=== PATIENT | female | born 2000 | race African-American/Black ===

== ENCOUNTER 2024-03-16 12:30 | Emergency (ER) | payer SELFPAY ==
[2024-03-16 12:32] VITALS: BP 119/85; PULSE 72; RESP 15; TEMP 36.4; O2SAT 98; BMI 35.9
--- NOTE | 2024-03-16 13:37 | US_ITS ---
STUDY: FIRST TRIMESTER OBSTETRICAL ULTRASOUND REASON FOR EXAM: Female, 23 years old -- NO FHR SEEN AT [facility] LMP: October 17, 2024. TECHNIQUE: Transvaginal TECHNICAL QUALITY: Adequate. PRIOR ULTRASOUND: None. FINDINGS: There is visualization of a single gestational sac in a normal intrauterine position. The mean sac diameter (MSD) measures 4.5 cm, indicating an estimated gestational age (EGA) of 10 weeks, 0 days. The gestational sac shape is within normal limits. There is a visualized yolk sac. The yolk sac measures 3.3 mm. The placenta is non-visualized. There is visualization of an embryo with no cardiac activity, consistent with intrauterine demise. The crown-rump length (CRL) measures 1.84 cm, indicating an estimated gestational age (EGA) of 9 weeks, 2 days. The estimated gestation age (EGA) by LMP is 9 weeks, 2 days. The estimated date of delivery (FARZAD) by LMP is October 17, 2023. The estimated gestation age (EGA) by US is 9 weeks, 1 days. The estimated date of delivery (FARZAD) by US is October 18, 2023. The uterus measures 10.5 cm x 7.4 cm x 4.9 cm. There is no demonstrated uterine fibroid. The cervix is closed. There is evidence of a 1.5 cm x 1.4 cm x 0.8 cm subchorionic hematoma. The right ovary measures 3.1 cm x 2.4 cm x 2.2 cm. There is a 1.6 cm x 1.1 cm x 1 cm follicular cyst. There is no visualized right adnexal mass or complex lesion. The left ovary measures 2.7 cm x 3 cm x 1.2 cm. There is no left ovarian cyst. There is no visualized left adnexal mass or complex lesion. There is no fluid in the cul de sac. US/Transvaginal w/Preg US IMPRESSION: Intrauterine gestation with a mean gestational age of 9 weeks and 1 day. No cardiac activity is noted at this time. Right follicular cyst. Subchorionic hematoma. Electronically Signed: Jona Ward MD at 14:36 EDT ,
--- NOTE | 2024-03-16 13:40 | ED.VIS.FEGU ---
HPI HPI - Female History of Present Illness Chief Complaint: Narrative Narrative: 23-year-old female at approximately 8 weeks gestation presents from the care center with concern for intrauterine demise/incomplete miscarriage. She relates history that she used to live in [place], and her last menstrual period was January 10, approximately 2 months ago. She did not do a home test, but had gone to the ER and was diagnosed with . On Saturday, 4 days ago, she was seen in an emergency department in [place] because of nausea and vomiting with , and she states that she had an ultrasound performed which showed that she had a intrauterine with heartbeat and a subchorionic hemorrhage/hematoma but had no evidence of vaginal bleeding at that time. They were on the road the following day, and she followed up with the care center here in [place] today, and was told that the subchorionic hematoma had dissolved, but they did not see the baby's heartbeat. She states that she may have occasional vaginal cramping, but no evidence of vaginal bleeding. She was sent to the emergency department for further evaluation. PFSH PFSH Medical History no medical history Allergy/AdvReac Type Severity Reaction Status Date / Time No Known Allergies Allergy Verified 03/16/24 12:34 Family History no significant family his Surgical History no surgical history Social History household members: family and children housing: house current occupational status: unemployed Smoking Status: Never smoker ROS ROS ED ROS Narrative Constitutional: No fever, no chills. HEENT: No sore throat. No neck pain. No loss of vision. No rhinorrhea. Cardiovascular: No chest pain. No palpitations. No pedal edema. Respiratory: No cough, no shortness of breath. Abdominal: No abdominal pain. No nausea. No vomiting. Genitourinary: No dysuria. No hematuria. Occasional vaginal/pelvic cramping. No vaginal bleeding. Musculoskeletal: No myalgias. No arthralgias. Neurologic: No headaches. No dizziness. No lightheadedness. Skin: No rash. No change in color. Psychiatric: No depression. No anxiety. EXAM Physical Exam Narrative Exam Narrative: Afebrile. Vital signs noted. HEENT: Normocephalic. Atraumatic. PERRL, EOMI. Neck soft and supple. No point tenderness or step off. Cardiovascular: Regular rate and rhythm. No murmurs, rubs, or gallops appreciated. Respiratory: No tachypnea. Lungs clear to auscultation bilaterally. Gastrointestinal: Abdomen soft, nontender, with normoactive bowel sounds. No rebound or guarding. Neurological: Awake. Alert. Nonfocal, nonlateralizing. Skin: No rash. Normal color. No pallor. Musculoskeletal: No pedal edema. Full range of motion extremities. Const Vital Signs: 03/16/24 12:32 03/16/24 14:31 Temperature 97.6 F L Temperature Source Temporal Pulse Rate 72 78 Respiratory Rate 15 17 Blood Pressure 119/85 H 112/56 L Blood Pressure Mean 96 74 Pulse Ox 98 99 Oxygen Delivery Method Room Air Room Air MDM MDM MDM Narrative Medical decision making narrative: In the differential diagnosis is intrauterine demise versus missed miscarriage. I reviewed her laboratory work and she has normal white count of 6.7 with hemoglobin 11.1, hematocrit 33.7, sodium slightly low at 134 with potassium 3.4, BUN 5 with creatinine 0.67. Glucose appropriately elevated at 82, AST low at 11, normal ALT of 15. hCG quantitative is elevated at 42,037 with serum initially obtained so ultrasound could be obtained which is positive. I reviewed the radiology report which shows an embryo without any cardiac activity consistent with intrauterine demise. There is an intrauterine gestation with gestational age approximated at 9 weeks and 1 day. There is a subchorionic hematoma. Additionally, cervix is closed. At this point in time, as she had not established any AMUSEMENT OR RECREATION CARD CHECKER care, patient was discussed with Dr. White with OBGYN who is reportedly on for no doc. In discussion with Dr. White, the patient was presented with 2 options, 1 being with a prescription for Cytotec and discharged with follow-up within the next few days for repeat ultrasound versus being contacted for D&C in the office as an outpatient. Patient has elected not to take Cytotec and will follow-up with the AMUSEMENT OR RECREATION CARD CHECKER in the office. Return instructions to the emergency department were reviewed. Disposition is discharged home in stable condition. History & Record Review Discussion w/independent historian: Patient Lab Data Attestation: I reviewed the patient's lab results. Labs: Laboratory Results - last 24 hr 03/16/24 13:20 WBC 6.7 RBC 3.79 L Hgb 11.1 L Hct 33.7 L MCV 88.9 MCH 29.3 MCHC 32.9 RDW Std Deviation 43.1 RDW Coeff of Newton 13.2 Plt Count TNP MPV 11.3 Immature Gran % (Auto) 0.300 Neut % (Auto) 57.6 Lymph % (Auto) 33.8 [place] % (Auto) 6.4 Eos % (Auto) 1.5 Baso % (Auto) 0.4 Absolute Neuts (auto) 3.8 Absolute Lymphs (auto) 2.26 Nucleated RBC % 0 Platelet Estimate ADEQUATE Sodium 134 L Potassium 3.4 L Chloride 106 Carbon Dioxide 23.0 Anion Gap 5 BUN 5 L Creatinine 0.67 Estim Creat Clear Calc 132.42 Est GFR (MDRD) Af Amer 142 Est GFR (MDRD) Non-Af 118 BUN/Creatinine Ratio 7.5 L Glucose 82 Calcium 8.9 Total Bilirubin 0.20 AST 11 L ALT 15 Alkaline Phosphatase 56 Total Protein 7.6 Albumin 3.6 Globulin 4.0 Albumin/Globulin Ratio 0.9 HCG, Quant 17993 H Serum , Qual POSITIVE H Blood Type O POSITIVE Radiography Diagnostic Testing: Clinical Impression(s) from Imaging Studies Obstetrics Ultrasound 03/16/24 13:37 IMPRESSION: Intrauterine gestation with a mean gestational age of 9 weeks and 1 day. No cardiac activity is noted at this time. Right follicular cyst. Subchorionic hematoma. Electronically Signed: Jona Ward MD at 14:36 EDT , Discharge Plan Triage Chief Complaint: ED Provider: Jose Worthy Dx/Rx/DC Orders Clinical Impression: Intrauterine , Missed with demise before 20 completed weeks of gestation Instructions: ED MISCARRIAGE Incomplete, ED DEMISE Primary Care Provider: Care Physician,No Primary Referrals: Heavenly White DO [Med Staff - Active Staff] - 3-5 Days Care Physician,No Primary [Primary Care Provider] - Activity Restrictions/Additional Instructions: The AMUSEMENT OR RECREATION CARD CHECKER's office will be in touch with you over the next 1 to 2 days for an appointment to be seen later this week. You can also call the office for an appointment. Return to the emergency department with increased bleeding, pain, new or worsening symptoms. It is important for you to follow-up with the AMUSEMENT OR RECREATION CARD CHECKER within the next few days/week. Print Language: Icelandic Disposition Disposition: Home, Self Care
[2024-03-16 13:56] LABS: Absolute Lymphocyte Count 2.26 X10^3/uL (0.83-4.51); Absolute Neutrophil Count 3.8 X10^3/uL (2.0-7.7); Basophil# 0.03 X10^3/uL; Basophil% 0.4 % (0-1); Eosinophils% 1.5 % (0-5); Hematocrit 33.7 % (37-47); Hemoglobin 11.1 g/dL (12.0-15.0); Internal QC Validated? YES +Cl - CLEAR BKGD; Lymphocyte # 2.26 X10^3/ul (0.83-4.51); Lymphocyte % 33.8 % (19-41); Mean Corp Hgb Conc 32.9 g/dL (32-36); Mean Corpuscular Hgb 29.3 pg (27.0-32.0); Mean Corpuscular Volume 88.9 fL (81-99); Mean Platelet Vol. 11.3 fl (6.2-12.0); Monocyte# 0.43 X10^3/uL; Monocyte% 6.4 % (0-10); NRBC Flagged by Analyzer 0 % (0-5); Neutrophil # 3.84 X10^3/uL (2.7-7.7); Neutrophil % 57.6 % (47-70); POSITIVE COUNT YES; RBC Distribution Width CV 13.2 % (11.6-14.6); RBC Distribution Width SD 43.1 fl (35.1-43.9); Red Blood Count 3.79 M/mm3 (4.2-5.4); White Blood Count 6.7 K/mm3 (4.4-11.0)
[2024-03-16 14:05] LABS: ALB/GLOB Ratio 0.9 RATIO (0.9-2.4); AST(SGOT) 11 U/L (15-37); Alanine Aminotransfer ALT/SGPT 15 U/L (13-56); Albumin, Serum 3.6 g/dL (3.2-5.0); Alkaline Phosphatase 56 U/L (45-117); Anion Gap 5 (5-15); BUN 5 mg/dL (7-18); BUN/Creat Ratio 7.5 RATIO (10-20); Calcium,Total 8.9 mg/dL (8.5-10.1); Chloride 106 mmol/L (98-107); Creatinine, Serum 0.67 mg/dL (0.55-1.02); EST Glomerular Filtration Rate 118 mL/min (>60); Est Glom Filt Rate - Afr Amer 142 mL/min (>60); Estimated Creatinine Clearance 132.42 ml/min; Glucose 82 mg/dL (74-106); Potassium 3.4 mmol/L (3.5-5.1); Protein, Total 7.6 g/dL (6.4-8.2); Sodium Level 134 mmol/L (136-145)
[2024-03-16 14:19] LABS: Differential Indicated SCAN CRITERIA MET
[2024-03-16 14:20] LABS: Platelet Estimate ADEQUATE (ADEQ)
[2024-03-16 14:24] LABS: Pregnancy, Serum, hCG Quali. POSITIVE Negative (0-9 Nonpreg); hCG Titer Quant., Serum 42037 mIU/mL (1-3)
[2024-03-16 14:31] VITALS: BP 112/56; PULSE 78; RESP 17; O2SAT 99
[2024-03-16 15:55] VITALS: BP 126/72; PULSE 89; RESP 16; TEMP 36.6; O2SAT 99
== END 2024-03-16 15:55 | disposition home or self-care (01) ==
PROVIDERS: Emergency Provider Emergency Medicine; Visit Provider Emergency Medicine
DX: O02.1 Missed abortion (principal)
CPT/HCPCS: 76817; 80053; 84702; 84703; 85025; 86900; 86901; 99282; A4216

== ENCOUNTER 2024-03-26 12:08 | Day surgery (SDC) | payer SELFPAY ==
[2024-03-26] VITALS (8 sets, daily range): BP systolic 104–119; BP diastolic 61–72; PULSE 82–94; RESP 16; TEMP 36.1–36.6; O2SAT 98–100; BMI 38.1
--- NOTE | 2024-03-26 | POC_PTH ---
PATIENT: JERARDO BENITEZ [place] [facility] [id number] AGE/SX: 23/ ROOM: RE03/26/[address]: Dr. Heavenly White DO : 2000 BED: DIS: 03/26/2024 SPEC #: [id number] RECD: 03/26/24 15:07 STATUS: LIDIA REFaustino #: [id number] FLORIN: 03/26/24 00:[address]: Heavenly White DEPT: SURGICAL PATHOLOGY RECD BY: Victor M Molina ENTERED: 03/27/24 10:35 SP TYPE: PROD CONC OTHR DR: No Primary Care Phys Tissues: Product of conception, NOS Procedures: Surgery Specimen Level IV HEADER OPERATION: D&C, suction PRE-OP DIAGNOSIS: Missed TISSUE SUBMITTED: Products of conception MICROSCOPIC DIAGNOSIS Endometrium, curettage: Chorionic villi, decidualized stroma and trophoblastic cells (products of conception). AM: 03/30/2024 MICROSCOPIC DESCRIPTION Slides are reviewed. GROSS DESCRIPTION Received in fixative is one container labeled with the patient's name and designated Products of conception. The specimen consists of multipe fragments of pink hemorrhagic soft tissue measuring in aggregate 8.0 x 8.0 x 2.0cm. tissue is not identified. Small Package And Bundle Sorter Clerk tissue are submitted in three cassettes. SOO/ 03/27/2024 TC:5 CPT:23240
--- NOTE | 2024-03-26 12:14 | PCM.PRE.AN2 ---
ASA Classification* ASA Classification ASA Classification: 2 Assessment & Plan Anesthesia* Anesthesia Assessment Anesthesia Assessment: Discussed sedation and/or anesthesia options, risks, benefits, and alternatives with patient/parents/legal guardian/POA. Questions invited. The patient/parents/legal guardian/POA seems to understand and agrees to proceed with anesthesia plan. Reviewed the physical assessment, medical history, allergy history and patient home medications list prior to surgery/procedure/anesthetic and documented any changes. Performed airway and anesthesia risk assessments. Anesthesia Type Anesthesia Type: MAC Anesthesia Focused Assessment* Airway Assessment Mouth opens: >3 cm Mallampati Score: III Focused Labs Anesthesia Preop lab: CBC WBC 6.7 K/mm3 (4.4-11.0) 03/16/24 13:20 RBC 3.79 M/mm3 (4.2-5.4) L 03/16/24 13:20 Hgb 11.1 g/dL (12.0-15.0) L 03/16/24 13:20 Hct 33.7 % (37-47) L 03/16/24 13:20 Plt Count TNP 03/16/24 13:20 CHEMISTRY Potassium 3.4 mmol/L (3.5-5.1) L 03/16/24 13:20 Sodium 134 mmol/L (136-145) L 03/16/24 13:20 BUN 5 mg/dL (7-18) L 03/16/24 13:20 Creatinine 0.67 mg/dL (0.55-1.02) 03/16/24 13:20 Glucose 82 mg/dL (74-106) 03/16/24 13:20 COAG HCG, Quant 52985 mIU/mL (1-3) H 03/16/24 13:20 Pre-Assessment Diagnosis/Proposed Procedure Planned Operative Procedure(s): SUCTION D&C Anesthesia History Anesthesia History - merchandise coordinator: Anesthesia History - merchandise coordinator Hx Hospitalization No 03/23/24 12:22 Any Problems With Anesthesia Yes: N,V 03/23/24 12:22 Cholinesterase deficiency No 03/23/24 12:22 You/Your Family Experience No 03/23/24 12:22 fever (hyperthermia) with Relationship Recent Exposure to Contagious Disease Does patient have nerve No 03/23/24 12:22 stimulator Patient instructed to have device shut off --Does patient have Pacemaker or ICD? When Was Last Pacemaker Check QUESTION #4 FULL TEXT: You/Your Family Experience fever (hyperthermia) with Anesthesia Last Oral Intake Last Oral intake: Last Oral Intake NPO since Meds taken in AM with sips of water? Meds patient instructed to take am of surgery PONV PONV - merchandise coordinator: PONV - merchandise coordinator Female Yes 03/23/24 12:22 HX of Motion Sickness No 03/23/24 12:22 HX of N/V After Surgery Yes 03/23/24 12:22 Non-Smoker Yes 03/23/24 12:22 Duration of Surgery greater No 03/23/24 12:22 than 60 minutes Number of Risk Factors 3 03/23/24 12:22 PONV Score Moderate Risk 03/23/24 12:22 Height & Weight Height & Weight: Anesthesia: Height & Weight Height 5 ft 1 in 03/16/24 12:32 Respiratory Assessment Respiratory Assessment - merchandise coordinator: Respiratory Tract Infection Hx - merchandise coordinator Hx Respiratory Tract Infection No 03/23/24 12:22 STOP Sleep Apnea STOP Sleep Apnea - merchandise coordinator: STOP Sleep Apnea - merchandise coordinator Hx Hypertension No 03/23/24 12:22 Hx Sleep Apnea No 03/23/24 12:22 CPAP BIPAP Do you snore loudly (louder No 03/23/24 12:22 than talking or can be heard Do you often feel tired/ Yes 03/23/24 12:22 fatigued/ sleepy during daytime? Has anyone observed you stop No 03/23/24 12:22 breathing during sleep? STOP Results Negative 03/23/24 12:22 QUESTION #5 FULL TEXT : Do you snore loudly (louder than talking or can be heard through closed doors)? Tobacco Use History Tobacco Use History - merchandise coordinator: Tobacco Use History - merchandise coordinator Tobacco Use Smoking Status Former smoker 03/23/24 12:22 Hx Tobacco Use Yes 03/23/24 12:22 Years Smoking Packs Smoked per Day Smoking Cessation Date was Yes - quit smoking within 15 03/23/24 12:22 within the last 15 years years Hx Smoking Cessation Date Hx Smoking Cessation No 03/23/24 12:22 Counseling Hematologic Medial History Hematologic Hx - merchandise coordinator: Hematologic Medical Hx - craft coordinator Hx of Blood Transfusion No 03/23/24 12:22 Hx of Transfusion in last 3 No 03/23/24 12:22 Months Date of Last Transfusion (if within last 3 months) Ever experience any problems No 03/23/24 12:22 with transfusion(s)? Specify any problems Hx of Preganancy in last 3 Yes 03/23/24 12:22 Months Nurse Filling Out Transfusion DSCHRIBER 03/23/24 12:22 & Questions: Date: 03/23/24 03/23/24 12:22 Time: 12:23 03/23/24 12:22 Patient unable to answer at this time (ie. confused, unrespo /Reproduction History /Reproductive History - merchandise coordinator: /Reproductive Hx- merchandise coordinator Hx Now Yes 03/23/24 12:22 Gestational Age (in weeks): EDC: Hx Hx Para Hx Section SAB No 03/23/24 12:22 Active Medications Active Medications: Current Medications Generic Name Dose Route Start Last Admin Trade Name Freq PRN Reason Stop Dose Admin Doxycycline Monohydrate 200 mg 03/26/24 13:30 Doxycycline 100 Mg Capsule PO 03/26/24 13:31 PREOP ONE Lactated Ringer's 1,000 mls @ 15 mls/hr 03/26/24 12:15 IV .Q48H JOSE ELIAS PFSH Medical History Migraine headache Heartburn Former smoker Home Medications ?Medication ?Instructions ?Recorded ?Last Taken ?Type NK 03/19/24 Unknown History Allergy/AdvReac Type Severity Reaction Status Date / Time No Known Allergies Allergy Verified 03/19/24 08:15 Surgical History Hx of dilation and curettage Social History household members: family and children housing: house current occupational status: unemployed Smoking Status: Former smoker Review of Systems (Anesthesia) ROS Narrative System reviewed and no additional complaints, except as documented.
[2024-03-26] MEDS: Lactated Ringers 1,000 ML 15 ML IV (12:41)
[2024-03-26] MEDS: Doxycycline 100 MG CAPSULE 200 MG PO (12:41)
--- NOTE | 2024-03-26 13:47 | HP.PCM.OB_ITS ---
History and Physical Date of Admission: 03/26/24 HPI: Patient presents with miscarriage. She reports 2 ED visits in the past week. One in [place] and the other here in [place] where she learned of the loss. She denies vaginal bleeding or pain. OB History No obstetric history on file. Heel Trimmer History LMP: Age at Menarche: Age at First : Age at Menopause: Heel Trimmer History Comments: Sexual Activity: No sexual activity data on record; No partner data on record Contraception: No contraception data on record ? PAST MEDICAL HISTORY History reviewed. No pertinent past medical history. PAST SURGICAL HISTORY PAST SURGICAL HISTORY Procedure Laterality Date ? D&C, DIAG AND/OR THERAPEUTIC 06/2022 FAMILY HISTORY No family history on file. SOCIAL HISTORY CURRENT MEDICATIONSExpand by Default No current outpatient medications on file. No current facility-administered medications for this visit. Allergies As of Date: 03/20/2024 (Not on File) Fully Assessed 03/20/2024 Allergies and current medication updated:Yes EXAM: BP 122/58 Wt 203 lb (92.1kg) GENERAL: pleasant, female in no apparent distress ASSESSMENT AND PLAN: 23yo female with missed ED records from [place] reviewed. Bedside TVUS today shows IUP measuring 8&3 with no FCA. Discussed R/B/A of treatment options and patient wishes to proceed with suction D&C at [facility]. Informed consent signed and all questions answered. Assessment & Plan Assessment/Plan (1) Missed :
[2024-03-26] MEDS: Lidocaine 1% /Epi 1:100 (20ml) 20 ML Vial (13:56)
--- NOTE | 2024-03-26 14:17 | PCM.OPRPT ---
Problems Associated Problem List Diagnoses (1) Missed : Report of Operation Date of Procedure: 03/26/24 Pre-Operative Diagnosis: MAB at 8 week Post-Operative Diagnosis: As above Surgery/Procedure Performed:: Suction D&C under ultrasound guidance Description of Surgical Findings:: Enlarged 8-9 week sized uterus Surgeon: Heavenly White white metal corrosion proofer: None Type of Anesthesia: MAC Special Medications: None Specimen's removed: Products of conception Drains: None Estimated Blood Loss (mL): 20 Fluids Replaced: See anesthesia record Description of Procedure: Patient was taken to the operating room where MAC anesthesia was induced and found to be adequate. She was prepped and draped in the dorsal lithotomy position using yellowfin stirrups. A weighted speculum was placed in the vagina to expose the cervix. A single-tooth tenaculum was placed on the anterior lip of the cervix. Local was infiltrated circumferentially within the cervix. The cervix was serially dilated to accommodate a size 9 suction curettage. The suction curettage was performed to remove the products of conception under ultrasound guidance. A sharp curettage was performed along all 4 uterine huizar with a good uterine cry. An ultrasound was performed at the end of the procedure confirming no obvious retained products of conception, however the ultrasound was limited given body habitus. Bleeding was hemostatic. All instruments were removed from the vagina and a vaginal sweep was performed. Sponge counts were correct. The patient was taken to the recovery in stable condition. Grafts/Implants Used: None Procedure Start Time: 13:54 Procedure Stop Time: 14:16 Complications None Admit VTE Documentation VTE Present on Admission: No VTE Mechan Device Prophylaxis: SCD's
--- NOTE | 2024-03-26 14:26 | PCM.DC ---
Discharge Instructions Diet Discharge Diet: No restrictions Activity Discharge Activity: May Drive (once you are more than 24 hours out from surgery) and May Shower (once you are more than 24 hours out from surgery) May resume sexual activity in: 2 weeks (nothing in the vagina and no soaking in water while having vaginal bleeding and for at least 2 weeks) Ice area for (Minutes): 15 Weight Bearing Status: Weight bearing as tolerated Lifting Restrictions: none Dressing / Incision Call your doctor if you observe: Fever of 101 or Higher, Coldness, Increased Pain, Numbness or Tingling, Change in Color, Inability to urinate, Inability to have a bowel movement, Using more than 1 pad per hour, Shortness of breath, Dizziness, Fainting spells, Swelling in the ankles, Chest pain, Prolonged hiccupping, Increased palpitations (irregular heartbeat), Calf discomfort and Uncontrolled pain Cleanse incision/area with: Soap & Water Follow Up Care Please Follow Up With: Heavenly White DO When: 1-2 weeks Test Results: Test results from this visit will be discussed in further detail at your follow-up appointment, if applicable. Discharge Plan Admission Primary Reason for Your Visit: surgery Attending Provider: Heavenly White Primary Care Provider: Care Physician,[place] Primary Instructions Print Language: French Discharge Orders/Prescriptions Prescriptions: No Action NK Other Ambulatory Orders: Type & Screen - PAT ONLY (Routine) Timeframe: [id number] Facility: [facility] - Location: Laboratory Ordered By: Dr. Heavenly White Referrals / Follow Up: Care Physician,No Primary [Primary Care Provider] - Disposition Disposition (needs filled in before D/C Order can be placed): Home, Self Care
--- NOTE | 2024-03-26 14:27 | PCM.POST.ANE ---
Anesthesia: Postop Eval I Current Vital Signs Temperature: 97.2 F Pulse Rate: 92 Blood Pressure: 111/66 Respiratory Rate: 16 Pulse Ox: 100 Oxygen Delivery Method: Room Air Assessment Airway patent: Yes Spontaneous unlabored respirations: Yes Mental status: Awake and Calm nausea: No Vomiting: No Anesthesia Complication: No Fluid Hydration Crystalloid volume administer (ml): 600 Total IV fluid infused: 600 Progress Note Anesthesia document: Postop Eval 1 completed: Yes
--- NOTE | 2024-03-27 11:15 | POSTOPAN2_ITS ---
Anesthesia Postop Eval I Sum Postop Eval Completion status Anesthesia document: Postop Eval 1 completed: Yes Anesthesia Postop Eval I Summary Anesthesia Postop Eval I Summary: Anesthesia Postop Eval I: Assessment Summary Airway patent Yes 03/26/24 14:28 BACK PANEL PADDER.[email or web address] Spontaneous unlabored Yes 03/26/24 14:28 BACK PANEL PADDER.OSKAR respirations Mental status Awake,Calm 03/26/24 14:28 BACK PANEL PADDER.TONYOBDora nausea No 03/26/24 14:28 BACK PANEL PADDER.TONYOBDora Vomiting No 03/26/24 14:28 BACK PANEL PADDER.TONYOBDora Anesthesia Postop Eval I: Fluid Summary Crystalloid volume administer 600 03/26/24 14:28 BACK PANEL PADDER.TONYOBY (ml) Colloids volume administered ( ml) Blood Product volume administered (ml) Total IV fluid infused 600 03/26/24 14:28 BACK PANEL PADDER.OSKAR Anesthesia Postop Eval I: Summary Notes Anesthesia Complication No 03/26/24 14:28 BACK PANEL PADDER.OSKAR Anesthesia Complication Comment: Post-operative progress note Anesthesia: Postop Eval II Evaluation Mental status: Awake and Calm Pain Level: 1 nausea: No Vomiting: No Complications Anesthesia Complication: No
--- NOTE | 2024-03-27 11:15 | PCM.POSTANE2 ---
Anesthesia Postop Eval I Sum Postop Eval Completion status Anesthesia document: Postop Eval 1 completed: Yes Anesthesia Postop Eval I Summary Anesthesia Postop Eval I Summary: Anesthesia Postop Eval I: Assessment Summary Airway patent Yes 03/26/24 14:28 CAUSTIC PURIFICATION OPERATOR.[email or web address] Spontaneous unlabored Yes 03/26/24 14:28 CAUSTIC PURIFICATION OPERATOR.OSKAR respirations Mental status Awake,Calm 03/26/24 14:28 CAUSTIC PURIFICATION OPERATOR.TONYOBDora nausea No 03/26/24 14:28 CAUSTIC PURIFICATION OPERATOR.TONYOBDora Vomiting No 03/26/24 14:28 CAUSTIC PURIFICATION OPERATOR.TONYOBDora Anesthesia Postop Eval I: Fluid Summary Crystalloid volume administer 600 03/26/24 14:28 CAUSTIC PURIFICATION OPERATOR.TONYOBY (ml) Colloids volume administered ( ml) Blood Product volume administered (ml) Total IV fluid infused 600 03/26/24 14:28 CAUSTIC PURIFICATION OPERATOR.OSKAR Anesthesia Postop Eval I: Summary Notes Anesthesia Complication No 03/26/24 14:28 CAUSTIC PURIFICATION OPERATOR.OSKAR Anesthesia Complication Comment: Post-operative progress note Anesthesia: Postop Eval II Evaluation Mental status: Awake and Calm Pain Level: 1 nausea: No Vomiting: No Complications Anesthesia Complication: No
== END 2024-03-26 15:21 | disposition home or self-care (01) ==
LOC: SDC 12:10 → AC 12:12
PROVIDERS: Referring Provider Obstetrics & Gynecology; Visit Provider Obstetrics & Gynecology
PROC: (CPT 59820; principal; 2024-03-26 13:15)
DX: O02.1 Missed abortion (principal)
CPT/HCPCS: 59820; 01965; 86850; 86900; 86901; 88305; J7120; J2405

== ENCOUNTER 2025-02-12 12:28 | Emergency (ER) | payer BC, SELFPAY ==
[2025-02-12 12:28] VITALS: BP 154/95; PULSE 96; RESP 14; TEMP 36.1; O2SAT 99; BMI 41.9
--- NOTE | 2025-02-12 12:52 | EX.ED.DYSGE1 ---
HPI <MOE Nowak - Last Filed: 02/12/25 14:55> History of Present Illness Chief Complaint: Abd Pain Narrative Narrative: Patient presenting today after being sent over from urgent care. She went to urgent care due to left-sided throat pain she has had over the past 2 weeks, she had a negative rapid strep test there. She also reported that she is 1 week late on her period, she had a positive test there. 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 Her LMP was at the end of December. She denies abnormal vaginal bleeding. She reports a history of pelvic cramping intermittently since having her miscarriage last March. She is not currently having any pelvic pain. She also reports that over the past 2 weeks she has had epigastric abdominal pain. She reports that at this time her pain is minimal. She denies fevers, chills, nausea, and vomiting. PFSH <MOE Nowak - Last Filed: 02/12/25 14:55> PFS Medical History Migraine headache Heartburn Former smoker Home Medications ?Medication ?Instructions ?Recorded ?Last Taken ?Type NK 03/19/24 Unknown History Allergy/AdvReac Type Severity Reaction Status Date / Time No Known Allergies Allergy Verified 02/12/25 12:28 Family History no significant family his Surgical History Hx of dilation and curettage Social History household members: family and children housing: house current occupational status: unemployed Smoking Status: Never smoker ROS <MOE Nowak - Last Filed: 02/12/25 14:55> ROS ED Constitutional Constitutional ED: Denies chills or fever(s) Cardiovascular Cardiovascular: Denies chest pain Respiratory/Chest Respiratory/Chest: Denies dyspnea Gastrointestinal Gastrointestinal: Reports abdominal pain; Denies constipation, diarrhea, nausea or vomiting Genitourinary Genitourinary ED: Denies dysuria, hematuria or urinary urgency Musculoskeletal Musculoskeletal: Denies arthralgias or myalgias Integumentary Denies rash Neurologic Neurologic: Denies weakness EXAM <MOE Nowak - Last Filed: 02/12/25 14:55> Physical Exam Const Vital Signs: 02/12/25 12:28 02/12/25 14:09 Temperature 97 F L 97 F L Temperature Source Temporal Pulse Rate 96 81 Respiratory Rate 14 14 Blood Pressure 154/95 H 117/77 Blood Pressure Mean 114 90 Pulse Ox 99 99 Oxygen Delivery Method Room Air Positive well nourished, well developed and no apparent distress General Appearance ED: well developed HEENT Reports normocephalic and head/scalp atraumatic HEENT Narrative: Posterior pharynx clear, no tonsillar exudate, uvula midline Mouth ED: Yes moist mucous membranes normal Eyes PERRL and EOMs intact bilaterally Neck full ROM, no lymphadenopathy and supple Chest Wall inspection of chest normal Resp normal respiratory effort and clear to auscultation bilaterally Cardio regular rate and regular rhythm GI soft to palpation, non-distended and no masses GI Narrative: No right upper quadrant tenderness, minimal epigastric tenderness on exam, negative Park sign, no rigidity or guarding Back/Spine normal ROM and normal to inspection Extremity normal to inspection and full ROM Neuro oriented x3, CN's II-XII intact bilaterally, moves all extremities, no focal motor deficits and no sensory deficits noted Sensorium / Orientation: awake and alert Psych mental status grossly normal and thought process normal Skin no rashes or lesions noted and no wounds <Dr. John Kovacs MD - Last Filed: 02/13/25 12:15> Physical Exam Const Vital Signs: 02/12/25 12:28 02/12/25 14:09 Temperature 97 F L 97 F L Temperature Source Temporal Pulse Rate 96 81 Respiratory Rate 14 14 Blood Pressure 154/95 H 117/77 Blood Pressure Mean 114 90 Pulse Ox 99 99 Oxygen Delivery Method Room Air [facility] <MOE Nowak - Last Filed: 02/12/25 14:55> [facility] Narrative Medical decision making narrative: Patient presenting today after being sent over from urgent care. She had right upper quadrant tenderness while at the urgent care, however she denies currently having any right upper quadrant abdominal pain. She has had intermittent upper abdominal pain for the past few weeks. On my exam, she has a negative Park sign, she has minimal tenderness to her epigastric region. She reports that the reason she went to urgent care was for left-sided throat pain. They did a rapid strep which was negative. On exam, she does not have any erythema to the posterior pharynx, her uvula is midline, no sign of peritonsillar abscess. Suspect viral pharyngitis. Labs obtained here, her CBC, LFTs, and lipase are unremarkable. She does not have any urinary symptoms to indicate a UTI. She is not having any pelvic pain or abnormal vaginal bleeding. Given she has not yet had a ultrasound to confirm IUP, I recommended she follow-up closely with OB to have this done as an outpatient. She was given a GI cocktail for her symptoms and on reexamination reported improvement of her epigastric pain. I do not feel that any abdominal imaging is indicated. Return instructions discussed and patient discharged home in stable condition. I have personally performed a face to face assessment of the patient and have reviewed the ANA Note. I performed a substantive portion of the visit including all aspects of the following. My blanco findings include: History is remarkable for right upper quad abdominal pain intermittently for the past 2 weeks, throat pain who reported a late menses. She was seen at urgent care. Rapid strep was negative. test was positive. Patient does endorse intolerance to greasy fried foods. No family history cholelithiasis. She denies history of peptic ulcer disease, hiatal hernia or reflux. She denies black or maroon-colored stool. She denies vomiting. Exam is elevated blood pressure 154/95. BMI is 41.9. HEENT is unremarkable. Lungs are clear auscultation. There is good breath sounds bilateral. Heart is regular. Rate is normal. No murmur, gallop or rub. Abdominal exam is remarkable for epigastric discomfort. There is no guarding. No findings. Negative clinical Park sign. Medical Decision Making patient intermittent pain with intolerance to greasy and fried foods and reported right upper quadrant pain obtain hepatic panel, lipase and CBC. If transaminases are elevated we will obtain ultrasound. This patient has pain in the epigastric area she was treated with Maalox and lidocaine. Other additions or changes: [None] Lab Data Attestation: I reviewed the patient's lab results. Labs: Laboratory Results - last 24 hr 02/12/25 02/12/25 12:59 13:00 WBC 8.3 RBC 4.39 Hgb 13.2 Hct 39.1 MCV 89.1 MCH 30.1 MCHC 33.8 RDW Std Deviation 45.1 H RDW Coeff of [place] 13.8 Plt Count 243 MPV 9.9 Immature Gran % (Auto) 0.400 Neut % (Auto) 59.9 Lymph % (Auto) 31.9 [place] % (Auto) 6.7 Eos % (Auto) 1.0 Baso % (Auto) 0.1 Absolute Neuts (auto) 5.0 Absolute Lymphs (auto) 2.63 Nucleated RBC % 0 Total Bilirubin 0.23 Direct Bilirubin 0.10 AST 24 ALT 33 Alkaline Phosphatase 64 Total Protein 7.7 Albumin 4.4 Globulin 3.3 Lipase 11 L <Dr. John Kovacs MD - Last Filed: 02/13/25 12:15> [facility] Narrative Medical decision making narrative: Patient presenting today after being sent over from urgent care. She had right upper quadrant tenderness while at the urgent care, however she denies having any right upper quadrant abdominal pain. On my exam, she has a negative Park sign, she has minimal tenderness to her epigastric region. She reports that the reason she went to urgent care was for left-sided throat pain. She has had upper abdominal pain intermittently over the past 2 weeeks. I have personally performed a face to face assessment of the patient and have reviewed the ANA Note. I performed a substantive portion of the visit including all aspects of the following. My blanco findings include: History is remarkable for right upper quad abdominal pain intermittently for the past 2 weeks, throat pain who reported a late menses. She was seen at urgent care. Rapid strep was negative. test was positive. Patient does endorse intolerance to greasy fried foods. No family history cholelithiasis. She denies history of peptic ulcer disease, hiatal hernia or reflux. She denies black or maroon-colored stool. She denies vomiting. Exam is elevated blood pressure 154/95. BMI is 41.9. HEENT is unremarkable. Lungs are clear auscultation. There is good breath sounds bilateral. Heart is regular. Rate is normal. No murmur, gallop or rub. Abdominal exam is remarkable for epigastric discomfort. There is no guarding. No findings. Negative clinical Park sign. Medical Decision Making patient intermittent pain with intolerance to greasy and fried foods and reported right upper quadrant pain obtain hepatic panel, lipase and CBC. If transaminases are elevated we will obtain ultrasound. This patient has pain in the epigastric area she was treated with Maalox and lidocaine. Other additions or changes: [None] History & Record Review Additional record(s) reviewed:: Prior outpatient record (Seen by Tawana was well for missed AB March 2024. She was seen 10 days prior in the emergency department for intrauterine demise.), Prior ED visit and Prior labs Lab Data Labs: Laboratory Results - last 24 hr 02/12/25 02/12/25 12:59 13:00 WBC 8.3 RBC 4.39 Hgb 13.2 Hct 39.1 MCV 89.1 MCH 30.1 MCHC 33.8 RDW Std Deviation 45.1 H RDW Coeff of [place] 13.8 Plt Count 243 MPV 9.9 Immature Gran % (Auto) 0.400 Neut % (Auto) 59.9 Lymph % (Auto) 31.9 [place] % (Auto) 6.7 Eos % (Auto) 1.0 Baso % (Auto) 0.1 Absolute Neuts (auto) 5.0 Absolute Lymphs (auto) 2.63 Nucleated RBC % 0 Total Bilirubin 0.23 Direct Bilirubin 0.10 AST 24 ALT 33 Alkaline Phosphatase 64 Total Protein 7.7 Albumin 4.4 Globulin 3.3 Lipase 11 L Discharge Plan Triage Chief Complaint: Abd Pain ED Midlevel Provider: Azul Coker ED Provider: John Kovacs Dx/Rx/DC Orders Clinical Impression: Epigastric pain, Pharyngitis, First trimester Prescriptions: No Action NK Primary Care Provider: Care Physician,No Primary Referrals: Care Physician,No Primary [Primary Care Provider] - Activity Restrictions/Additional Instructions: Follow-up with OB regarding your , return for any other concerns. Print Language: Cameroonian Disposition Disposition: Home, Self Care Discharge Date/Time: 02/12/25 14:10
[2025-02-12 13:06] LABS: Absolute Lymphocyte Count 2.63 X10^3/uL (0.83-4.51); Basophil# 0.01 X10^3/uL; Basophil% 0.1 % (0-1); Eosinophil# 0.08 X10^3/uL; Hematocrit 39.1 % (37-47); Hemoglobin 13.2 g/dL (12.0-15.0); Lymphocyte # 2.63 X10^3/ul (0.83-4.51); Lymphocyte % 31.9 % (19-41); Mean Corp Hgb Conc 33.8 g/dL (32-36); Mean Corpuscular Hgb 30.1 pg (27.0-32.0); Mean Corpuscular Volume 89.1 fL (81-99); Mean Platelet Vol. 9.9 fl (6.2-12.0); Monocyte# 0.55 X10^3/uL; Monocyte% 6.7 % (0-10); NRBC Flagged by Analyzer 0 % (0-5); Neutrophil # 4.95 X10^3/uL (2.7-7.7); Neutrophil % 59.9 % (47-70); Platelet Count 243 K/mm3 (150-450); RBC Distribution Width CV 13.8 % (11.6-14.6); RBC Distribution Width SD 45.1 fl (35.1-43.9); Red Blood Count 4.39 M/mm3 (4.2-5.4); White Blood Count 8.3 K/mm3 (4.4-11.0)
[2025-02-12] MEDS: Mag Hydrox/Al Hydrox/Simeth 30 ML UDC PO (13:13)
[2025-02-12] MEDS: Lidocaine 2% Viscous15 ML UDC 15 ML PO (13:13)
[2025-02-12 13:28] LABS: AST(SGOT) 24 U/L (<=31); Alanine Aminotransfer ALT/SGPT 33 U/L (<=34); Albumin, Serum 4.4 g/dL (3.5-5.0); Alkaline Phosphatase 64 U/L (35-104); Globulin 3.3 g/dL (2.2-4.2); Lipase 11 U/L (13-75); Protein, Total 7.7 g/dL (5.9-8.4); Total Bilirubin 0.23 mg/dL (0.00-1.30)
[2025-02-12 14:09] VITALS: BP 117/77; PULSE 81; RESP 14; TEMP 36.1; O2SAT 99
== END 2025-02-12 14:10 | disposition home or self-care (01) ==
PROVIDERS: Physician Assistant; Emergency Provider Emergency Medicine; Visit Provider Emergency Medicine
DX: O99.891 Other specified diseases and conditions complicating pregnancy (principal); Z87.891 Personal history of nicotine dependence; O99.511 Diseases of the respiratory system complicating pregnancy, first trimester; J02.9 Acute pharyngitis, unspecified; R10.13 Epigastric pain; R10.11 Right upper quadrant pain; Z3A.00 Weeks of gestation of pregnancy not specified
CPT/HCPCS: 80076; 83690; 85025; 99283; A4216

== ENCOUNTER 2025-02-24 18:45 | Emergency (ER) | payer SELFPAY ==
[2025-02-24 18:46] VITALS: BP 130/78; PULSE 112; RESP 16; TEMP 37; O2SAT 98; BMI 40.1
[2025-02-24 20:45] VITALS: BP 144/84; PULSE 94; RESP 16; O2SAT 100
[2025-02-24] MEDS: 0.9% Normal Saline (1000mL) 1,000 ML 999 ML IV ×2 (21:06→22:12)
[2025-02-24] MEDS: Ondansetron 4 MG/2 ML Vial IV (21:06)
[2025-02-24 21:18] LABS: Absolute Lymphocyte Count 1.61 X10^3/uL (0.83-4.51); Absolute Neutrophil Count 7.3 X10^3/uL (2.0-7.7); Basophil# 0.02 X10^3/uL; Basophil% 0.2 % (0-1); Eosinophil# 0.01 X10^3/uL; Eosinophils% 0.1 % (0-5); Hematocrit 38.4 % (37-47); Hemoglobin 13.3 g/dL (12.0-15.0); Lymphocyte # 1.61 X10^3/ul (0.83-4.51); Lymphocyte % 16.2 % (19-41); Mean Corp Hgb Conc 34.6 g/dL (32-36); Mean Corpuscular Volume 86.7 fL (81-99); Mean Platelet Vol. 10.1 fl (6.2-12.0); Monocyte# 1.01 X10^3/uL; Monocyte% 10.1 % (0-10); NRBC Flagged by Analyzer 0 % (0-5); Neutrophil # 7.27 X10^3/uL (2.7-7.7); Platelet Count 272 K/mm3 (150-450); RBC Distribution Width CV 12.6 % (11.6-14.6); RBC Distribution Width SD 40.2 fl (35.1-43.9); Red Blood Count 4.43 M/mm3 (4.2-5.4)
[2025-02-24 21:18] LABS: Color, Urine Amber (Yellow); Glucose, Dipstick Normal (Normal); Leukocyte Esterase-Dipstick 25 /ul (Negative); Nitrite-Dipstick Negative (Negative); Occult Blood-Urine 25 /ul (Negative); Protein-Dipstick 100 mg/dl (Negative); Specific Gravity, Urine 1.025 (1.002-1.030); Urine Clarity Sl. Cloudy (Clear); Urine Urobilinogen 12 mg/dl (Normal)
[2025-02-24 21:44] LABS: Ketone-Dipstick 150 mg/dl (Negative); Urine Bilirubin Dipstick 3 mg/dL (Negative)
[2025-02-24 21:47] LABS: Mucous, Urine 3+ /hpf (<or=2+); White Blood Cells 0-5 SEEN /hpf (0-5)
[2025-02-24 21:48] LABS: Bacteria 3+ /hpf (None Seen); Red Blood Cells-Urine 0-5 SEEN /hpf (0-5); Squamous Epithelial Cells - UA 0-5 SEEN /hpf (5-10)
[2025-02-24 21:56] LABS: AST(SGOT) 21 U/L (<=31); Alanine Aminotransfer ALT/SGPT 27 U/L (<=34); Albumin, Serum 4.4 g/dL (3.5-5.0); Alkaline Phosphatase 87 U/L (35-104); Anion Gap 16 (5-15); BUN 6 mg/dL (4-19); BUN/Creat Ratio 8.7 RATIO (10-20); Bilirubin, Direct 0.24 mg/dL (0.00-0.30); Calcium,Total 9.8 mg/dL (7.6-11.0); Carbon Dioxide 19.6 mmol/L (21.0-32.0); Chloride 98 mmol/L (98-108); EST Glomerular Filtration Rate 125 (>60); Estimated Creatinine Clearance 133.78 ml/min (50-250); Globulin 4.2 g/dL (2.2-4.2); Glucose 89 mg/dL (70-99); Lipase 12 U/L (13-75); Potassium 3.9 mmol/L (3.3-5.1); Protein, Total 8.6 g/dL (5.9-8.4); Sodium Level 133 mmol/L (133-145); Total Bilirubin 0.52 mg/dL (0.00-1.30)
[2025-02-24 22:00] VITALS: BP 122/59; PULSE 95; RESP 16; O2SAT 100
--- NOTE | 2025-02-24 22:16 | EDS_ITS ---
HPI History of Present Illness Chief Complaint: Nausea/Vomiting Informant: patient Narrative Narrative: 24-year-old female 7 weeks (G5) presenting with nausea and vomiting. Patient states she has not been able to eat or drink for 3 days. She states that she has had hyperemesis gravidarum with her prior pregnancies. She has been taking B6 and Compazine without relief. She has utilized Zofran in the past which has helped her. Patient notes decreased urination that is dark. No reported fevers. No diarrhea in fact constipation. She denies vaginal bleeding. She does note intermittent sharp upper abdominal pain. She states she has a history of cholelithiasis. She follows with Amanda Cueva. [facility] Medical History Migraine headache Heartburn Former smoker Home Medications ?Medication ?Instructions ?Recorded ?Last Taken ?Type NK 03/19/24 Unknown History Allergy/AdvReac Type Severity Reaction Status Date / Time No Known Allergies Allergy Verified 02/24/25 18:48 Surgical History Hx of dilation and curettage Social History household members: family and children housing: house current occupational status: unemployed Smoking Status: Never smoker ROS ROS ED Constitutional Constitutional ED: Denies chills or weight loss Eyes Eyes: Denies change in vision or diplopia ENT ENT ED: Denies ear pain, rhinorrhea or sore throat Cardiovascular Cardiovascular: Denies chest pain, orthopnea, palpitations or racing heartbeat Respiratory/Chest Respiratory/Chest: Denies cough, dyspnea or orthopnea Gastrointestinal Gastrointestinal: Reports abdominal pain, nausea and vomiting; Denies diarrhea Genitourinary Genitourinary ED: Denies dysuria, hematuria or urinary frequency Musculoskeletal Musculoskeletal: Denies arthralgias or myalgias Integumentary Denies abscess or rash Neurologic Neurologic: Denies headache(s) or weakness Psychiatric Psychiatric: Denies anxiety, depression, suicidal ideation or suicidal thoughts Endocrine Endocrinology: Denies polydipsia, polyphagia or polyuria Allergic/Immunologic Allergic/Immunologic ED: Denies mouth swelling, tongue swelling or urticaria EXAM Physical Exam Const Vital Signs: 02/24/25 18:46 02/24/25 20:45 02/24/25 22:00 Temperature 98.6 F Temperature Source Oral Pulse Rate 112 H 94 95 Respiratory Rate 16 16 16 Blood Pressure 130/78 H 144/84 H 122/59 H Blood Pressure Mean 95 104 80 Pulse Ox 98 100 100 Oxygen Delivery Method Room Air Room Air Room Air Positive well nourished and well developed General Appearance ED: well developed and NAD HEENT Reports normocephalic, head/scalp atraumatic and dry mucous membranes Mouth ED: Yes dry mucous membranes Mouth: dry mucous membranes Eyes PERRL and EOMs intact bilaterally Neck no lymphadenopathy, supple and no JVD Resp normal respiratory effort and clear to auscultation bilaterally Cardio regular rate, regular rhythm and no murmurs Rate: tachycardic GI normal to inspection, nondistended, normoactive bowel sounds and non-tender Palpation: soft Back/Spine no CVA tenderness and normal ROM Extremity normal to inspection General Extremety ED: Negative for edema General Extremity: Negative for edema Neuro oriented x3 and CN's II-XII intact bilaterally Sensorium / Orientation: alert Motor Exam: strength 5/5 throughout Psych mental status grossly normal Mood & Affect: Negative for depressed or tearful Skin no rashes or lesions noted and no wounds MDM MDM MDM Narrative Medical decision making narrative: Differential diagnosis includes but not limited to acute dehydration acute kidney injury electrolyte abnormalities acute cholecystitis pancreatitis Basic blood work was obtained white count is 10 with 73 neutrophils hemoglobin 13.3. Normal LFTs lipase is 12. Anion gap 16 CO2 19.6 creatinine 0.7 BUN is 6. Urinalysis with 150 ketones. 3+ bacteria 0-5 white cells 0-5 squamous cells 0- 5 red cells. Negative nitrates. This can be sent for culture. Patient received Zofran and 2 L of IV fluids. History & Record Review Discussion w/independent historian: Patient Additional record(s) reviewed:: Prior ED visit and Prior labs Lab Data Attestation: I reviewed the patient's lab results. Labs: Laboratory Results - last 24 hr 02/24/25 02/24/25 20:27 20:40 WBC 10.0 RBC 4.43 Hgb 13.3 Hct 38.4 MCV 86.7 MCH 30.0 MCHC 34.6 RDW Std Deviation 40.2 RDW Coeff of [place] 12.6 Plt Count 272 MPV 10.1 Immature Gran % (Auto) 0.400 Neut % (Auto) 73.0 H Lymph % (Auto) 16.2 L [place] % (Auto) 10.1 H Eos % (Auto) 0.1 Baso % (Auto) 0.2 Absolute Neuts (auto) 7.3 Absolute Lymphs (auto) 1.61 Nucleated RBC % 0 Sodium 133 Potassium 3.9 Chloride 98 Carbon Dioxide 19.6 L Anion Gap 16 H BUN 6 Creatinine 0.70 Estim Creat Clear Calc 133.78 Est GFR (MDRD) Non-Af 125 BUN/Creatinine Ratio 8.7 L Glucose 89 Calcium 9.8 Total Bilirubin 0.52 Direct Bilirubin 0.24 AST 21 ALT 27 Alkaline Phosphatase 87 Total Protein 8.6 H Albumin 4.4 Globulin 4.2 Lipase 12 L Urine Color Rubi Urine Clarity Sl. Cloudy Urine pH 6.0 Ur Specific [place] 1.025 Urine Protein 100 H Urine Glucose (UA) Normal Urine Ketones 150 A* Urine Occult Blood 25 H Urine Nitrite Negative Urine Bilirubin 3 H Urine Urobilinogen 12 H Ur Leukocyte Esterase 25 H Urine RBC 0-5 SEEN Urine WBC 0-5 SEEN Ur Squamous Epith Cells 0-5 SEEN Urine Bacteria 3+ Urine Mucus 3+ Discharge Plan Triage Chief Complaint: Nausea/Vomiting ED Provider: Issa Sherman Dx/Rx/DC Orders Prescriptions: No Action NK Primary Care Provider: Care Physician,No Primary Referrals: Care Physician,No Primary [Primary Care Provider] - Print Language: Irish
[2025-02-24 23:03] VITALS: BP 126/66; PULSE 96; RESP 18; TEMP 37; O2SAT 100
== END 2025-02-24 23:48 | disposition home or self-care (01) ==
PROVIDERS: Emergency Provider Emergency Medicine; Visit Provider Emergency Medicine
DX: O21.9 Vomiting of pregnancy, unspecified (principal); Z87.891 Personal history of nicotine dependence; Z3A.01 Less than 8 weeks gestation of pregnancy
CPT/HCPCS: 80048; 80076; 81001; 83690; 85025; 96361; 96374; 99285; A4216; J2405

== ENCOUNTER 2025-02-28 19:03 | Emergency (ER) | payer SELFPAY ==
[2025-02-28 19:03] VITALS: BP 128/82; PULSE 112; RESP 16; TEMP 37.1; O2SAT 100; BMI 39.6
--- NOTE | 2025-02-28 19:38 | EX.ED.DYSGE1 ---
HPI History of Present Illness Chief Complaint: General Illness Informant: patient and parent Narrative Narrative: 7-week gestation by ultrasound followed by [facility]. Recurrent nausea and vomiting. She has had vomiting throughout her previous pregnancies. She has seen her OB she is on pyridoxine at night. She was seen 4 days ago for vomiting. Symptoms returned today with abdominal cramping. No urinary symptoms. No abnormal vaginal discharge or bleeding. States mild loose stools. Denies bloody emesis. States pain to the right ear and jaw. Headache. Denies cough. States unable keep things down. Prior similar symptoms: Yes PFSH PFSH Medical History Migraine headache Heartburn Former smoker Home Medications ?Medication ?Instructions ?Recorded ?Last Taken ?Type ondansetron 4 mg disintegrating 4 mg PO Q6H PRN PRN Nausea #15 tabs 02/24/25 Unknown Rx tablet vits no.126-ferrous fum 1 tab PO DAILY 02/24/25 Unknown History 28 mg iron-folic acid 800 mcg tablet (Classic ) promethazine 25 mg rectal 25 mg RECTAL Q6H PRN PRN Nausea ##6 02/28/25 Unknown Rx suppository (Promethegan) promethazine 25 mg tablet 25 mg PO Q6H PRN PRN Nausea #10 02/28/25 Unknown Rx TABLETS pyridoxine (vitamin B6) 50 mg 50 mg PO DAILY 02/28/25 Unknown History tablet Allergy/AdvReac Type Severity Reaction Status Date / Time No Known Allergies Allergy Verified 02/28/25 19:03 Surgical History Hx of dilation and curettage Social History household members: family and children housing: house current occupational status: unemployed Smoking Status: Never smoker ROS ROS ED Constitutional Constitutional ED: Denies chills, fever(s) or sweats ENT ENT ED: Denies sore throat Cardiovascular Cardiovascular: Denies chest pain, leg edema, palpitations or racing heartbeat Respiratory/Chest Respiratory/Chest: Denies cough, dyspnea or dyspnea on exertion Gastrointestinal Gastrointestinal: Reports abdominal pain, diarrhea, nausea and vomiting Genitourinary Genitourinary ED: Denies dysuria, hematuria or urinary frequency Musculoskeletal Musculoskeletal: Denies back pain, extremity pain or neck pain Integumentary Denies rash or wounds Neurologic Neurologic: Denies headache(s), paresthesias or weakness EXAM Physical Exam Const Vital Signs: 02/28/25 19:03 02/28/25 19:18 02/28/25 22:09 Temperature 98.7 F Temperature Source Oral Pulse Rate 112 H 90 Respiratory Rate 16 16 Respiratory Effort Normal Non-Labored Respiratory Pattern Normal Blood Pressure 128/82 H 117/77 Blood Pressure Mean 97 90 Pulse Ox 100 100 Oxygen Delivery Method Room Air Room Air 02/28/25 22:48 Temperature 98.0 F Temperature Source Pulse Rate 90 Respiratory Rate 16 Respiratory Effort Respiratory Pattern Blood Pressure 117/77 Blood Pressure Mean 90 Pulse Ox 100 Oxygen Delivery Method Positive well nourished and well developed General Appearance ED: well developed and NAD HEENT Reports TM's clear and dry mucous membranes HEENT Narrative: No trismus of the jaw. normocephalic and atraumatic Tympanic Membrane ED: Yes TM's clear Mouth ED: Yes dry mucous membranes Mouth: dry mucous membranes Eyes General Eye ED: Yes normal appearance of both eyes Neck full ROM Chest Wall Chest: Negative for tenderness Resp normal respiratory effort and normal air movement Effort and Inspection: symmetric chest movement; Negative for respiratory distress Cardio regular rhythm and no murmurs Rate: tachycardic Peripheral Pulses: pulses 2+ throughout GI normal to inspection, nondistended, normoactive bowel sounds GI Narrative: No guarding or rebound. Negative Park's or McBurney's tenderness. Palpation: Negative for guarding or rebound tenderness present Extremity normal to inspection General Extremety ED: Negative for edema or tenderness General Extremity: Negative for edema Neuro oriented x3 and no sensory deficits noted Sensorium / Orientation: awake and alert Skin no rashes or lesions noted and no wounds MDM MDM MDM Narrative Medical decision making narrative: Interventions / MDM: Differential diagnosis: Hyperemesis gravidarum, dehydration Diagnosis considered but do not suspect: No signs of otitis media. No vaginal bleeding for concerns for threatened miscarriage. My EKG interpretation: N/A Imaging independently reviewed and interpreted by myself: N/A External documents reviewed: N/A Test considered but not ordered:N/A ED course: Patient tachycardic dry mucosal membranes vomiting in no hematemesis nonsurgical abdomen. IV established for 2 L of fluid will check abdominal labs, IV Reglan ordered. Patient given 2 L of fluid symptoms improved. She attempted to drink and wanted Sprite with a carbonated drink aggravate her stomach show IV Pepcid she was monitored. Able tolerate oral fluids. She will increase her B6 to twice a day. Prescription for Phenergan oral and suppository sent to her pharmacy. Urine had 25 leukocytes 4+ bacteria. Improved from 4 days ago. There was no urine culture from 4 days ago. I added urine culture. She is asymptomatic. She will follow-up with her OB team. All questions were answered. Re-evaluation: stable Disposition discussed with patient/family/significant other: Patient Case discussed with consulting clinician: N/A This note was generated with [employer] dictation software. It may contain incorrect words, spelling, and punctuation that were not noted in checking the note before signing. Lab Data Attestation: I reviewed the patient's lab results. Labs: Laboratory Results - last 24 hr 02/28/25 02/28/25 19:48 20:05 WBC 8.8 RBC 4.31 Hgb 13.0 Hct 37.3 MCV 86.5 MCH 30.2 MCHC 34.9 RDW Std Deviation 40.3 RDW Coeff of [place] 12.6 Plt Count 304 MPV 9.8 Immature Gran % (Auto) 0.500 Neut % (Auto) 68.4 Lymph % (Auto) 20.6 [place] % (Auto) 10.2 H Eos % (Auto) 0.2 Baso % (Auto) 0.1 Absolute Neuts (auto) 6.1 Absolute Lymphs (auto) 1.82 Nucleated RBC % 0 Sodium 133 Potassium 3.6 Chloride 97 L Carbon Dioxide 19.5 L Anion Gap 16 H BUN 4 Creatinine 0.66 L Estim Creat Clear Calc 140.92 Est GFR (MDRD) Non-Af 127 BUN/Creatinine Ratio 5.3 L Glucose 97 Calcium 9.7 Total Bilirubin 0.30 AST 18 ALT 20 Alkaline Phosphatase 85 Total Protein 8.4 Albumin 4.1 Globulin 4.3 H Albumin/Globulin Ratio 1.0 Lipase 13 Urine Color Yellow Urine Clarity Cloudy Urine pH 6.5 Ur Specific [place] 1.020 Urine Protein 100 H Urine Glucose (UA) Normal Urine Ketones 150 A* Urine Occult Blood 50 H Urine Nitrite Negative Urine Bilirubin 1 H Urine Urobilinogen 8 H Ur Leukocyte Esterase 25 H Urine RBC 0-5 SEEN Urine WBC 0-5 SEEN Ur Squamous Epith Cells 0-5 SEEN Urine Bacteria 4+ Urine Mucus 2+ Discharge Plan Triage Chief Complaint: General Illness ED Provider: Thai Holland Dx/Rx/DC Orders Clinical Impression: Hyperemesis gravidarum, Acute dehydration, First trimester Instructions: Hyperemesis Gravidarum, 1st Trimester Prescriptions: New promethazine [Promethegan] 25 mg suppository 25 mg RECTAL Q6H PRN PRN (Reason: Nausea) Qty: 6 0RF promethazine 25 mg tablet 25 mg PO Q6H PRN PRN (Reason: Nausea) Qty: 10 0RF No Action ondansetron 4 mg tablet,disintegrating 4 mg PO Q6H PRN PRN (Reason: Nausea) Qty: 15 0RF Classic 28 mg iron- 800 mcg tablet 1 tab PO DAILY pyridoxine (vitamin B6) 50 mg tablet 50 mg PO DAILY Primary Care Provider: Care Physician,No Primary Referrals: Care Physician,No Primary [Primary Care Provider] - Activity Restrictions/Additional Instructions: Blood work stable creatinine 0.66. Urine with ketones. Urine culture sent and pending. This was more improved from 4 days ago. Increase your vitamin B6 to twice a day once in the morning and once in the afternoon. Follow-up with your OB team at [facility]. Print Language: Sri Lankan Disposition Disposition: Home, Self Care Discharge Date/Time: 02/28/25 22:49
[2025-02-28] MEDS: Metoclopramide 10 MG/2 ML Vial IV (19:48)
[2025-02-28] MEDS: 0.9% Normal Saline (1000mL) 1,000 ML 999 ML IV ×2 (19:48→20:44)
--- OUTSIDE RECORDS SUMMARY | 2025-02-28 19:58 | XMS RPT_ITS | CCD ---
Author Organization [facility] Care Team Providers Care Mortgage Loan Originator Name Role Phone Unavailable Primary Care Provider Unavailabl e Care Physician, No Primary Primary Care Provider Unavailable Dr. John Kovacs MD Emergency Provider MASON SCOTT Attending Unavailable ROCIO MERCHANT Attending Unavailable SHIVAM DAVALOS Referring Unavailable ARMIN MOBLEY Attending Unavailable ARMIN MOBLEY Referring Unavailable Dr. John Kovacs MD Attending Provider Dr. Issa Sherman DO Emergency Provider Care Physician, No Primary Primary Care Unava ilable John Kovacs Attending Unavailable Care Physician, No Primary Primary Care Unava ilable Jose Worthy Attending Unavailable Care Physician, No Primary Primary Care Unava ilable Shivam Davalos Attending Unavailable Shivam Davalos Referring Unavailable Care Physician, No Primary Primary Care Unava ilable Heavenly White Attending Unavailable Heavenly White Referring Unavailable Issa Sherman Attending Unavailable Care Physician, No Primary Primary Care Unava ilable Medications Current Medications Medication Drug Class(es) Dates Sig (Normalized) Sig (Original) doxylamine succinate 25 mg oral tablet (2 sources) Start: 02-16-2025 take 1 tablet by mouth once daily at bedtime doxylamine (UNISOM, DOXYLAMINE,) 25 mg tab Take 1 tablet by mouth daily at bedtime. 30 tablet 3 02/16/2025 Active ondansetron 4 mg disintegrating oral tablet (1 source) Serotonin-3 Receptor Antagonist Start: 02-24-2025 take 1 tablet by mouth every six hours as needed for nausea Ondansetron 4 mg tablet,disintegrat ing Active 4 mg PO EVERY 6 HOURS NEEDED as needed for Nausea February 24, 2025 12:00am multivitamin ( VITAMIN WITH MINERALS) 28 mg iron- 800 mcg tab (2 sources) Start: 02-16-2025 take 1 tablet by mouth once daily multivitamin ( VITAMIN WITH MINERALS) 28 mg iron- 800 mcg tab Take 1 tablet by mouth once daily. 30 tablet 11 02/16/2025 Active Vit No.189-Bkbh-Jltwl [ Vits No.126-Ferrous Fum 28 Mg Iron-Folic Acid 800 Mcg Tablet] ( Vits No.126-Ferrous Fum 28 Mg ) 28 mg iron- 800 mcg tablet (1 source) Start: 02-24-2025 Vit No.535-Vmtd-Npnci [ Vits No.126-Ferrous Fum 28 Mg Iron-Folic Acid 800 Mcg Tablet] ( Vits No.126-Ferrous Fum 28 Mg ) 28 mg iron- 800 mcg tablet Active 1 {tbl} PO DAILY February 24, 2025 12:00am vitamin b6 50 mg oral tablet (2 sources) Start: 02-16-2025 take 1 tablet by mouth once daily pyridoxine, vitamin B6, (VITAMIN B-6) 50 mg tablet Take 1 tablet by mouth once daily. 30 tablet 3 02/16/2025 Active Problems Active Problems Problem Classification Problem Date Documented Da te Episodic/Chronic Abdominal pain (2 sources) Epigastric pain; Translations: [Epigastric pain] 02-12-2025 Episodic Fluid and electrolyte disorders (1 source) Dehydration; Translations: [Dehydration] 02-24-2025 Episodic Genitourinary symptoms and ill-defined conditions (2 sources) Increased frequency of urination; Translations: [Frequency of micturition] Onset: 02-12-2025 02-12-2025 Episodic Nausea and vomiting (1 source) Vomiting; Translations: [Vomiting, unspecified] 02-24-2025 Episodic Other complications of (5 sources) Missed miscarriage; Translations: [Missed ] 03-20-2024 Episodic Other complications of (1 source) Vomiting of , unspecified; Translations: [Unspecified vomiting of , antepartum condition or complication] 02-17-2025 Episodic Other conditions (2 sources) 03-24-2024 Episodic Other and delivery including normal (8 sources) First trimester ; Translations: [Encounter for supervision of normal , unspecified, first trimester] Onset: 02-16-2025 02-12-2025 Episodic Other upper respiratory infections (4 sources) Pharyngitis; Translations: [Acute pharyngitis, unspecified] Onset: 02-12-2025 02-12-2025 Episodic Unclassified (1 source) Other specified diseases and conditions complicating ; Translations: [Other specified diseases and conditions complicating ] Onset: 02-15-2025 Past or Other Problems Problem Classification Problem Date Documented Da te Episodic/Chronic Other complications of (2 sources) Missed ; Translations: [Missed ] Onset: 03-20-2024 Episodic Spontaneous (1 source) Complete or unspecified spontaneous without complication; Translations: [Complete or unspecified spontaneous without complication] Onset: 07-07-2024 Episodic Results Test Name Value Interpretation Reference Range Facility Absolute lymphocyte countOrd ered By: Issa Sherman on 02-24-2025 Lymphocytes Auto (Unsp spec) [#/Vol] 1.61 10*3/uL 0.83-4.51 [facility] Absolute neutrophil countOrd ered By: Issa Sherman on 02-24-2025 Neutrophils (Bld) [#/Vol] 7.3 10*3/uL 2.0-7.7 [facility] Anion gap in Serum or Plasma Ordered By: Issa Sherman on 02-24-2025 Anion gap [Moles/Vol] 16 mmol/L High 5-15 [facility] Automated lymphocyte count a s percentage of total leukocytesOrdered By: Issa Sherman on 02-24-2025 Lymphocytes/100 WBC Auto (Unsp spec) 16.2 % Low 19-41 [facility] BUN/creatinine ratioOrdered By: Issa Sherman on 02-24-2025 Urea nitrogen/Creatinine [Mass ratio] 8.7 mg/mg Low 10-20 [facility] Basic Metabolic Profile (BMP )on 02-24-2025 BUN/CRE 8.7 RATIO Low 10- [facility] Comment on above: Performed By: #### L 500.3400, L501.2450, L100.0100, L500.2500 #### [facility] [address] [place], [place] [address]ram[place]. [place], [place], [id number] Calcium [Mass/Vol] 9.8 mg/dL Normal 7.6-11.0 [facility] Comment on above: Performed By: #### L 500.3400, L501.2450, L100.0100, L500.2500 #### [facility] [address] [place], [address] Chloride [Moles/Vol] 98 mmol/L Normal 98-108 [facility] Comment on above: Performed By: #### L 500.3400, L501.2450, L100.0100, L500.2500 #### [facility] [address] [place], [address] CO2 [Moles/Vol] 19.6 mmol/L Low 21.0-32.0 [facility] Comment on above: Performed By: #### L 500.3400, L501.2450, L100.0100, L500.2500 #### [facility] [address] [place], [address] Creatinine [Mass/Vol] 0.70 mg/dL Normal 0.70-1.20 [facility] Comment on above: Performed By: #### L 500.3400, L501.2450, L100.0100, L500.2500 #### [facility] [address] [place], [address] ECRCL 133.78 ml/min Normal 50-250 [facility] Comment on above: Performed By: #### L 500.3400, L501.2450, L100.0100, L500.2500 #### [facility] [address] [place], [address] GAP 16 High 5-15 [facility] Comment on above: Performed By: #### L 500.3400, L501.2450, L100.0100, L500.2500 #### [facility] [address] [place], [address] GFR/1.73 sq M.predicted among non-blacks MDRD (S/P/Bld) [Vol rate/Area] 125 mL/min/{1.73_m2} Normal >60 [facility] Comment on above: Result Comment: mL/m in/1.73m2 CKD-EPI Creatinine Equation (2020) Performed By: #### L 500.3400, L501.2450, L100.0100, L500.2500 #### [facility] [address] [place], [address] Glucose [Mass/Vol] 89 mg/dL Normal 70-99 [facility] Comment on above: Performed By: #### L 500.3400, L501.2450, L100.0100, L500.2500 #### [facility] [address] [place], [address] Potassium [Moles/Vol] 3.9 mmol/L Normal 3.3-5.1 [facility] Comment on above: Performed By: #### L 500.3400, L501.2450, L100.0100, L500.2500 #### [facility] [address] [place], [address] Sodium [Moles/Vol] 133 mmol/L Normal 133-145 [facility] Comment on above: Performed By: #### L 500.3400, L501.2450, L100.0100, L500.2500 #### [facility] [address] [place], [address] Urea nitrogen [Mass/Vol] 6 mg/dL Normal 4-19 [facility] Comment on above: Performed By: #### L 500.3400, L501.2450, L100.0100, L500.2500 #### [facility] [address] [place], [address] Basophil percentageOrdered B y: Issa Sherman on 02-24-2025 Basophils/100 WBC (Bld) 0.2 % 0-1 [facility] Bilirubin Test strip Ql (U)O rdered By: Issa Sherman on 02-24-2025 Bilirubin Ql (U) 3 mg/dL High Negative [facility] Comment on above: COLOR OF URINE MAY A FFECT DIPSTICK RESULTS. Bilirubin directOrdered By: Issa Sherman on 02-24-2025 Bilirubin.direct [Mass/Vol] 0.24 mg/dL 0.00-0.30 [facility] Bilirubin, totalOrdered By: Issa Sherman on 02-24-2025 Bilirubin [Mass/Vol] 0.52 mg/dL 0.00-1.30 [facility] CBC W/Diff, Automatedon 02-07-2024 Absolute Lymph 1.61 X10 3/uL Normal 0.83-4.51 [facility] Comment on above: Performed By: #### L 500.3400, L501.2450, L100.0100, L500.2500 #### [facility] [address] [place], [address] Absolute Neut 7.3 X10 3/uL Normal 2.0-7.7 [facility] Comment on above: Performed By: #### L 500.3400, L501.2450, L100.0100, L500.2500 #### [facility] [address] [place], [address] Basophils/100 WBC (Bld) 0.2 % Normal 0-1 [facility] Comment on above: Performed By: #### L 500.3400, L501.2450, L100.0100, L500.2500 #### [facility] [address] [place], [address] Eosinophils/100 WBC (Bld) 0.1 % Normal 0-5 [facility] Comment on above: Performed By: #### L 500.3400, L501.2450, L100.0100, L500.2500 #### [facility] [address] [place], [address] Erythrocyte distribution width (RBC) [Ratio] 12.6 % Normal 11.6-14.6 [facility] Comment on above: Performed By: #### L 500.3400, L501.2450, L100.0100, L500.2500 #### [facility] [address] [place], [address] Hematocrit (Bld) [Volume fraction] 38.4 % Normal 37-47 [facility] Comment on above: Performed By: #### L 500.3400, L501.2450, L100.0100, L500.2500 #### [facility] [address] [place], [address] Hemoglobin (Bld) [Mass/Vol] 13.3 g/dL Normal 12.0-15.0 [facility] Comment on above: Performed By: #### L 500.3400, L501.2450, L100.0100, L500.2500 #### [facility] [address] [place], [address] IG% 0.400 Normal 0.0-0.9 [facility] Comment on above: Result Comment: IG% - Immature Granulocytes (promyelocytes, myelocytes and metamyelocytes) > 1% indicates that a LEFT SHIFT is Present. Performed By: #### L 500.3400, L501.2450, L100.0100, L500.2500 #### [facility] [address] [place], [address] Lymphocytes/100 WBC (Bld) 16.2 % Low 19-41 [facility] Comment on above: Performed By: #### L 500.3400, L501.2450, L100.0100, L500.2500 #### [facility] [address] [place], [address] MCH (RBC) [Entitic mass] 30.0 pg Normal 27.0-32.0 [facility] Comment on above: Performed By: #### L 500.3400, L501.2450, L100.0100, L500.2500 #### [facility] [address] [place], [address] MCHC (RBC) [Mass/Vol] 34.6 g/dL Normal 32-36 [facility] Comment on above: Performed By: #### L 500.3400, L501.2450, L100.0100, L500.2500 #### [facility] [address] [place], [address] MCV (RBC) [Entitic vol] 86.7 fL Normal 81-[address] [facility] Comment on above: Performed By: #### L 500.3400, L501.2450, L100.0100, L500.2500 #### [facility] [address] [place], [address] Monocytes/100 WBC (Bld) 10.1 % High 0-[address] [facility] Comment on above: Performed By: #### L 500.3400, L501.2450, L100.0100, L500.2500 #### [facility] [address] [place], [address] Neutrophils/100 WBC (Bld) 73.0 % High 47-70 [facility] Comment on above: Performed By: #### L 500.3400, L501.2450, L100.0100, L500.2500 #### [facility] [address] [place], [address] Nucleated RBC (Bld) [#/Vol] 0 10*3/uL Normal 0-5 [facility] Comment on above: Performed By: #### L 500.3400, L501.2450, L100.0100, L500.2500 #### [facility] [address] [place], [address] Platelet mean volume (Bld) [Entitic vol] 10.1 fL Normal 6.2-12.0 [facility] Comment on above: Performed By: #### L 500.3400, L501.2450, L100.0100, L500.2500 #### [facility] [address] [place], [address] Platelets (Bld) [#/Vol] 272 10*3/uL Normal 150-450 [facility] Comment on above: Performed By: #### L 500.3400, L501.2450, L100.0100, L500.2500 #### [facility] [address] [place], [address] RBC (Bld) [#/Vol] 4.43 10*6/uL Normal 4.2-5.4 [facility] Comment on above: Performed By: #### L 500.3400, L501.2450, L100.0100, L500.2500 #### [facility] [address] [place], [address] RDW SD 40.2 fl Normal 35.1-43.9 [facility] Comment on above: Performed By: #### L 500.3400, L501.2450, L100.0100, L500.2500 #### [facility] [address] [place], [address] WBC (Bld) [#/Vol] 10.0 10*3/uL Normal 4.4-11.0 [facility] Comment on above: Performed By: #### L 500.3400, L501.2450, L100.0100, L500.2500 #### [facility] [address] [place], [address] Carbon dioxide, total [Moles /volume] in Central venous bloodOrdered By: Issa Sherman on 02-24-2025 CO2 [Moles/Vol] 19.6 mmol/L Low 21.0-32.0 [facility] Chloride assayOrdered By: Romie Sherman on 02-24-2025 Chloride [Moles/Vol] 98 mmol/L 98-108 [facility] Emergency Department Summary on 02-24-2025 Emergency Department Summary [facility] Medical Records Department [address] [place] [address] Emergency Department Summary 02/24/25 MR#: [id number] Acct: [id number] Name: JERARDO GRISSOM Rep #: [id number] : 2000 24 From: Issa Sherman DO PCP: Care Physician,No Primary Status:DEP ER Location: ED HPI History of Present Illness Chief Complaint: Nausea/Vomiting Informant: patient Narrative Narrative: 24-year-old female 7 weeks (G5) presenting with nausea and vomiting. Patient states she has not been able to eat or drink for 3 days. She states that she has had hyperemesis gravidarum with her prior pregnancies. She has been taking B6 and Compazine without relief. She has utilized Zofran in the past which has helped her. Patient notes decreased urination that is dark. No reported fevers. No diarrhea in fact constipation. She denies vaginal bleeding. She does note intermittent sharp upper abdominal pain. She states she has a history of cholelithiasis. She follows with Amanda Cueva. [facility] Medical History Migraine headache Heartburn Former smoker Home Medications ???Medication ???Instructions ???Recorded ???Last Taken ???Type NK 03/19/24 Unknown History Allergy/AdvReac Type Severity Reaction Status Date / Time No Known Allergies Allergy Verified 02/24/25 18:48 Surgical History Hx of dilation and curettage Social History household members: family and children housing: house current occupational status: unemployed Smoking Status: Never smoker ROS ROS ED Constitutional Constitutional ED: Denies chills or weight loss Eyes Eyes: Denies change in vision or diplopia ENT ENT ED: Denies ear pain, rhinorrhea or sore throat Cardiovascular Cardiovascular: Denies chest pain, orthopnea, palpitations or racing heartbeat Respiratory/Chest Respiratory/Chest: Denies cough, dyspnea or orthopnea Gastrointestinal Gastrointestinal: Reports abdominal pain, nausea and vomiting; Denies diarrhea Genitourinary Genitourinary ED: Denies dysuria, hematuria or urinary frequency Musculoskeletal Musculoskeletal: Denies arthralgias or myalgias Integumentary Denies abscess or rash Neurologic Neurologic: Denies headache(s) or weakness Psychiatric Psychiatric: Denies anxiety, depression, suicidal ideation or suicidal thoughts Endocrine Endocrinology: Denies polydipsia, polyphagia or polyuria Allergic/Immunologic Allergic/Immunologic ED: Denies mouth swelling, tongue swelling or urticaria EXAM Physical Exam Const Vital Signs: 02/24/25 18:46 02/24/25 20:45 02/24/25 22:00 Temperature 98.6 F Temperature Source Oral Pulse Rate 112 H 94 95 Respiratory Rate 16 16 16 Blood Pressure 130/78 H 144/84 H 122/59 H Blood Pressure Mean 95 104 80 Pulse Ox 98 100 100 Oxygen Delivery Method Room Air Room Air Room Air Positive well nourished and well developed General Appearance ED: well developed and NAD HEENT Reports normocephalic, head/scalp atraumatic and dry mucous membranes Mouth ED: Yes dry mucous membranes Mouth: dry mucous membranes Eyes PERRL and EOMs intact bilaterally Neck no lymphadenopathy, supple and no JVD Resp normal respiratory effort and clear to auscultation bilaterally Cardio regular rate, regular rhythm and no murmurs Rate: tachycardic GI normal to inspection, nondistended, normoactive bowel sounds and non-tender Palpation: soft Back/Spine no CVA tenderness and normal ROM Extremity normal to inspection General Extremety ED: Negative for edema General Extremity: Negative for edema Neuro oriented x3 and CN's II-XII intact bilaterally Sensorium / Orientation: alert Motor Exam: strength 5/5 throughout Psych mental status grossly normal Mood Affect: Negative for depressed or tearful Skin no rashes or lesions noted and no wounds MDM MDM MDM Narrative Medical decision making narrative: Differential diagnosis includes but not limited to acute dehydration acute kidney injury electrolyte abnormalities acute cholecystitis pancreatitis Basic blood work was obtained white count is 10 with 73 neutrophils hemoglobin 13.3. Normal LFTs lipase is 12. Anion gap 16 CO2 19.6 creatinine 0.7 BUN is 6. Urinalysis with 150 ketones. 3+ bacteria 0-5 white cells 0-5 squamous cells 0-5 red cells. Negative nitrates. This can be sent for culture. Patient received Zofran and 2 L of IV fluids. History Record Review Discussion w/independent historian: Patient Additional record(s) reviewed:: Prior ED visit and Prior labs Lab Data Attestation: I reviewed the patient's lab results. Labs: Laboratory Results - last 24 hr 02/24/25 02/24/25 20:27 20:40 WBC 10.0 RB (more content not included)... Normal [facility] Eosinophil percentageOrdered By: Issa Sherman on 02-24-2025 Eosinophils/100 WBC (Bld) 0.1 % 0-5 [facility] Erythrocyte distribution wid th ratioOrdered By: Issa Sherman on 02-24-2025 Erythrocyte distribution width (RBC) [Ratio] 12.6 % 11.6-14.6 [facility] Erythrocyte distribution wid th standard deviationOrdered By: Issa Sherman on 02-24-2025 Erythrocyte distribution width (RBC) [Ratio] 40.2 fl 35.1-43.9 [facility] Glomerular filtration rate ( GFR) estimation/1.73 sq m using serum, plasma, or whole bOrdered By: Issa Sherman on 02-24-2025 GFR/1.73 sq M.predicted among non-blacks MDRD (S/P/Bld) [Vol rate/Area] 125 mL/min/{1.73_m2} >60 [facility] Comment on above: mL/min/1.73m2 CKD-EP I Creatinine Equation (2020) Hematocrit Auto (Bld) [Volum e fraction]Ordered By: Issa Sherman on 02-24-2025 Hematocrit (Bld) [Volume fraction] 38.4 % 37-47 [facility] Hemoglobin measurementOrdere d By: Issa Sherman on 02-24-2025 Hemoglobin (Bld) [Mass/Vol] 13.3 g/dL 12.0-15.0 [facility] Immature granulocytes/100 WB C Auto (Bld)Ordered By: Issa Sherman on 02-24-2025 Immature granulocytes/100 WBC (Bld) 0.400 % 0.0-0.9 [facility] Comment on above: IG% - Immature Granu locytes (promyelocytes, myelocytes and metamyelocytes) > 1% indicates that a LEFT SHIFT is Present. Ketones Test strip Ql (U)Ord ered By: Issa Baehne on 02-24-2025 Ketones Ql (U) 150 mg/dl Abnormal Negative [facility] Comment on above: CRITICAL VALUE *HRES ULTS CALLED TO MMARTIN 02/24/25 2144 Lilian Sanchez.REPORT READ BACK BY SAME. Laboratory - Chemistry and C hemistry - challengeOrdered By: Issa Sherman on 02-24-2025 AST [Catalytic activity/Vol] 21 U/L <32 [facility] Lipaseon 02-24-2025 Lipase [Catalytic activity/Vol] 12 U/L Low 13-75 [facility] Comment on above: Result Comment: Fausto hassan note: LIPASE revised reference range effective 22. New Lipase methodology. Expected to produce lower values than the previous assay method. NEW Reference Range: 13 - 75 U/L Performed By: #### L 500.3400, L501.2450, L100.0100, L500.2500 #### [facility] [address] [place], [address] Lipase measurementOrdered By : Issali Sherman on 02-24-2025 Lipase [Catalytic activity/Vol] 12 U/L Low 13-75 [facility] Comment on above: Please note:LIPASE r evised reference range effective 22. New Lipase methodology. Expected to produce lower values than the previous assay method. NEW Reference Range: 13 - 75 U/L Liver Profileon 02-24-2025 Albumin [Mass/Vol] 4.4 g/dL Normal 3.5-5.0 [facility] Comment on above: Performed By: #### L 500.3400, L501.2450, L100.0100, L500.2500 #### [facility] [address] [place], [address] ALK PHOS 87 U/L Normal 35-104 [facility] Comment on above: Performed By: #### L 500.3400, L501.2450, L100.0100, L500.2500 #### [facility] [address] [place], [address] ALT [Catalytic activity/Vol] 27 U/L Normal <=34 [facility] Comment on above: Performed By: #### L 500.3400, L501.2450, L100.0100, L500.2500 #### [facility] [address] [place], [address] AST [Catalytic activity/Vol] 21 U/L Normal <=31 [facility] Comment on above: Performed By: #### L 500.3400, L501.2450, L100.0100, L500.2500 #### [facility] [address] [place], [address] Bilirubin [Mass/Vol] 0.52 mg/dL Normal 0.00-1.30 [facility] Comment on above: Performed By: #### L 500.3400, L501.2450, L100.0100, L500.2500 #### [facility] [address] [place], [address] Bilirubin.direct [Mass/Vol] 0.24 mg/dL Normal 0.00-0.30 [facility] Comment on above: Performed By: #### L 500.3400, L501.2450, L100.0100, L500.2500 #### [facility] [address] [place], [address] Globulin (S) [Mass/Vol] 4.2 g/dL Normal 2.2-4.[address] [facility] Comment on above: Performed By: #### L 500.3400, L501.2450, L100.0100, L500.2500 #### [facility] [address] [place], [address] T PROT 8.6 g/dL High 5.9-8.4 [facility] Comment on above: Performed By: #### L 500.3400, L501.2450, L100.0100, L500.2500 #### [facility] [place], [address] MCV (mean corpuscular volume ) determinationOrdered By: Issa Sherman on 02-24-2025 MCV (RBC) [Entitic vol] 86.7 fL 81-99 [facility] Mean corpuscular hemoglobin (MCH) determinationOrdered By: Issa Sherman on 02-24-2025 MCH (RBC) [Entitic mass] 30.0 pg 27.0-32.0 [facility] Mean corpuscular hemoglobin concentration (MCHC) determinationOrdered By: Issa Sherman on 02-24-2025 MCHC (RBC) [Mass/Vol] 34.6 g/dL 32-36 [facility] Mean platelet volume determi nationOrdered By: Issa Sherman on 02-24-2025 Platelet mean volume (Bld) [Entitic vol] 10.1 fL 6.2-12.0 [facility] Microscopic analysis of urin e for red blood cells (RBC)Ordered By: Issa Sherman on 02-24-2025 Microscopic analysis of urine for red blood cells (RBC) 0-5 SEEN /hpf 0-5 [facility] Monocyte percentageOrdered B y: Issa Sherman on 02-24-2025 Monocytes/100 WBC (Bld) 10.1 % High 0-10 [facility] Mucus LM Ql (Urine sed)Order ed By: Issa Sherman on 02-24-2025 Mucus Ql (Urine sed) 3+ /hpf [facility] Neutrophil percentageOrdered By: Issa Sherman on 02-24-2025 Neutrophils/100 WBC (Bld) 73.0 % High 47-70 [facility] Nitrite Test strip Ql (U)Ord ered By: Issa Sherman on 02-24-2025 Nitrite Ql (U) Negative Negative [facility] Nucleated red blood cell per centageOrdered By: Issa Sherman on 02-24-2025 Nucleated RBC/100 WBC (Bld) [Ratio] 0 % 0-5 [facility] Platelet countOrdered By: Romie Sherman on 02-24-2025 Platelets (Bld) [#/Vol] 272 10*3/uL 150-450 [facility] Potassium measurement (mass/ volume)Ordered By: Issa Sherman on 02-24-2025 Potassium (Unsp spec) [Mass/Vol] 3.9 mmol/L 3.3-5.1 [facility] Protein Test strip Ql (U)Ord ered By: Issa Sherman on 02-24-2025 Protein Ql (U) 100 mg/dl High Negative [facility] RBC Auto (Bld) [#/Vol]Ordere d By: Issa Sherman on 02-24-2025 RBC (Bld) [#/Vol] 4.43 10*6/uL 4.2-5.4 [facility] Serum creatinine measurement (mass/volume)Ordered By: Isas Sherman on 02-24-2025 Creatinine [Mass/Vol] 0.70 mg/dL 0.70-1.20 [facility] Serum globulin measurementOr dered By: Issa Sherman on 02-24-2025 Globulin (S) [Mass/Vol] 4.2 g/dL 2.2-4.2 [facility] Serum glucose measurement (m ass/volume)Ordered By: Issa Sherman on 02-24-2025 Glucose [Mass/Vol] 89 mg/dL 70-99 [facility] Serum or plasma alanine guerra otransferase (ALT) measurementOrdered By: Issa Sherman on 02-24-2025 ALT [Catalytic activity/Vol] 27 U/L <35 [facility] Serum or plasma albumin eladia urement (mass/volume)Ordered By: Issa Sherman on 02-24-2025 Albumin [Mass/Vol] 4.4 g/dL 3.5-5.0 [facility] Serum or plasma alkaline kesha sphatase measurementOrdered By: Issa Sherman on 02-24-2025 ALP [Catalytic activity/Vol] 87 U/L 35-104 [facility] Serum or plasma calcium eladia urement (mass/volume)Ordered By: Issa Sherman on 02-24-2025 Calcium [Mass/Vol] 9.8 mg/dL 7.6-11.0 [facility] Serum or plasma urea nitroge n measurement (mass/volume)Ordered By: Issa Sherman on 02-24-2025 Urea nitrogen [Mass/Vol] 6 mg/dL 4-19 [facility] Sodium levelOrdered By: Shay Sherman on 02-24-2025 Sodium [Moles/Vol] 133 mmol/L 133-145 [facility] Squamous epithelial cells de tection in urine sediment by light microscopyOrdered By: Issa Sherman on 02-24-2025 Epithelial cells.squamous LM Ql (Urine sed) 0-5 SEEN /hpf 5-10 [facility] Total proteinOrdered By: Virgilio Sherman on 02-24-2025 Protein [Mass/Vol] 8.6 g/dL High 5.9-8.4 [facility] Urinalysis, Completeon 02-24 BACTERIA 3+ /hpf Normal None Seen [facility] Comment on above: Order Comment: COLOR OF URINE MAY AFFECT DIPSTICK RESULTS. CLEAN CATCH Performed By: #### L 400.0001 #### [facility] [address] [place], [address] EPI,SQUAMOUS 0-5 SEEN Normal 5-10 [facility] Comment on above: Order Comment: COLOR OF URINE MAY AFFECT DIPSTICK RESULTS. CLEAN CATCH Performed By: #### L 400.0001 #### [facility] [address] [place], [address] RBC 0-5 SEEN Normal 0-5 [facility] Comment on above: Order Comment: COLOR OF URINE MAY AFFECT DIPSTICK RESULTS. CLEAN CATCH Performed By: #### L 400.0001 #### [facility] [address] [place], [address] Mucus Ql (Urine sed) 3+ /hpf Normal [facility] Comment on above: Order Comment: COLOR OF URINE MAY AFFECT DIPSTICK RESULTS. CLEAN CATCH Performed By: #### L 400.0001 #### [facility] [address] [place], [address] WBC 0-5 SEEN Normal 0-5 [facility] Comment on above: Order Comment: COLOR OF URINE MAY AFFECT DIPSTICK RESULTS. CLEAN CATCH Performed By: #### L 400.0001 #### [facility] [address] [place], [address] Urine clarityOrdered By: Virgilio Sherman on 02-24-2025 Clarity (U) Sl. Cloudy Clear [facility] Urine color determinationOrd ered By: Issa Sherman on 02-24-2025 Color (U) Rubi Yellow [facility] Urine glucose detectionOrder ed By: Issa Sherman on 02-24-2025 Glucose Ql (U) Normal mg/dl Normal [facility] Urine leukocyte esterase det ection by dipstickOrdered By: Issa Sherman on 02-24-2025 Leukocyte esterase Test strip Ql (U) 25 /ul High Negative [facility] Urine pHOrdered By: Issa davison on 02-24-2025 pH (U) 6.0 [pH] 5.0 - 8.0 [facility] Urine sediment bacteria coun t by microscopy (number/high power field)Ordered By: Issa Sherman on 02-24-2025 Bacteria LM.HPF (Urine sed) [#/Area] 3 /[HPF] None Seen [facility] Urine specific gravity measu rementOrdered By: Issa Sherman on 02-24-2025 Specific gravity (U) [Rel density] 1.025 1.002-1.030 [facility] Urine urobilinogen measureme ntOrdered By: Issa Sherman on 02-24-2025 Urobilinogen Ql (U) 12 mg/dl High Normal [facility] White blood cell (WBC) count Ordered By: Issa Sherman on 02-24-2025 WBC (Bld) [#/Vol] 10.0 10*3/uL 4.4-11.0 [facility] White blood cell countOrdere d By: Issa Sherman on 02-24-2025 White blood cell count 0-5 SEEN /hpf 0-5 [facility] B-HCG [place] [address].0 m[IU]/mL High <5.0 [facility] Comment on above: Order Comment: Speci men Type: BLOOD SPECIMEN Ordering Facility: [facility] Address: [address], [place] [address] Result Comment: WESLEY TITATIVE HCG NORMAL RANGES Weeks of Gestation (Weeks Since LMP) 3 Weeks (5.8-71.2 mIU/mL) 4 Weeks (9.5-750 mIU/mL) 5 Weeks (217-7138 mIU/mL) 6 Weeks (158-09185 mIU/mL) 7 Weeks (3697-001088 mIU/mL) 8 Weeks (68642-694429 mIU/mL) 9 Weeks (88637-567721 mIU/mL) 10 Weeks (32877-657952 mIU/mL) 12 Weeks (43286-494332 mIU/mL) Referenced to [facility] [facility] [address] [facility] Performed By: #### 2 1198-7 #### [facility] CLIA [id number] [address] [place] [address] CNOVon 02-16-2025 CNOV Office Visit (AGOBST ) JERARDO GRISSOM ([id number]) 4 F Date Time Provider Department 02/16/25 3:15 PM ARMIN MOBLEY I AGOBST During your visit today, we recorded the following information about you: Blood pressure Weight Height Last Period 110/76 99.1 kg 1.549 m 01/05/25 Armin Mobley I, MD 02/17/2025 9:26 PM Signed S: Jerardo, a 24-year-old is here for evaluation of her , she had a positive test at an urgent care when she went because of sore throat two days ago. Patient stated that her sore throat has improved however now she is complaining of some nausea and vomiting. She had 2 previous vaginal deliveries in 2020 and 2021 and had 2 spontaneous miscarriages. No abdominal pain or vaginal bleeding at this time. She has a history of migraines previously managed with Excedrin but now only using Tylenol. O: On examination, General: Pleasant, in no apparent distress. Pulmonary: Inspiratory effort. Cardiovascular: Regular sinus rhythm, no murmurs. Abdomen: Soft, nontender, no masses Pelvic: Declined examination at this time. Neuro: Alert and oriented x 3. Extremities: No edema. A: Nausea and vomiting of . at early stage. P: To get quantitative hCG and an obstetrical ultrasound once above discriminatory zone and an initial OB visit. To start on vitamins. To start on vitamin B6 and Unisom. I spent a total of 30 minutes on the date of the service which included preparing to see the patient, [id number] patient care, completing clinical documentation, obtaining and/or reviewing separately obtained history, performing a medically appropriate examination, counseling and educating the patient/family/caregi rich, and ordering medications, tests, or procedures. MD Jessica Fitzgerald Joseph, I, MD 02/17/2025 9:10 PM Addendum Please call the office before going to the hospital. If you are , go to the ER at the [facility]. Do not go to the outlying ER?s ([facility] or [place]). If you need to go to an ER and cannot or will not go downtown, please use one of [facility]?s ER?s (not [facility], [place] or [facility]). - Begin taking a vitamin once daily; prescription has been sent to your [facility] in [place]. - Take vitamin B6 and Unisom together at bedtime to help reduce nausea; - Use Tylenol for migraine relief as needed instead of Excedrin. - Go to the first-floor lab today for blood work to confirm your and check hormone levels; no paper order is required. - We will call you with your blood test results and schedule an ultrasound once your hormone levels are high enough. - After your ultrasound, you will have an appointment with a nurse practitioner for a complete exam, including a Pap smear, cultures, and any additional blood tests. - If your nausea does not improve with the vitamin B6 and Unisom, please contact our office. Allergies As of Date: 02/16/2025 (No Known Allergies) Date Reviewed: 02/16/2025 Reviewed by: Navdeep De Leon LPN - Fully Assessed Reason for Visit: New Patient [172] Cmt: LMP: 01/04/25 [place] [facility] [place] SORE THROAT AND THEY DID A TEST THAT CAME BACK POSITIVE Primary Visit Diagnosis: at early stage (HCC) [Z34.90] Other Visit Diagnosis:Nausea and vomiting of , antepartum (HCC) [O21.9] Order(s): multivitamin ( VITAMIN WITH MINERALS) 28 mg iron- 800 mcg tabTake 1 tablet by mouth once daily.Disp: 30 tabletRfl: 11 pyridoxine, vitamin B6, (VITAMIN B-6) 50 mg tabletTake 1 tablet by mouth once daily.Disp: 30 tabletRfl: 3 doxylamine (UNISOM, DOXYLAMINE,) 25 mg tabTake 1 tablet by mouth daily at bedtime.Disp: 30 tabletRfl: 3 HCG QUANTITATIVE [SQHCGQT] Order #: [id number] FUTURE Prescriptions as of 02/17/2025 - multivitamin ( VITAMIN WITH MINERALS) 28 mg iron- 800 mcg tab Take 1 tablet by mouth once daily. - pyridoxine, vitamin B6, (VITAMIN B-6) 50 mg tablet Take 1 tablet by mouth once daily. - doxylamine (UNISOM, DOXYLAMINE,) 25 mg tab Take 1 tablet by mouth daily at bedtime. Problem List As Of Date: 02/16/2025 (None) Other instructions from your clinician: Please call the office before going to the hospital. If you are , [facility] Do not go to the outlying ER?s ([facility], [facility] or [facility]). If you need to go to an ER and cannot or will not go downtown, please use one of [facility]?s ER?s (not [place], [facility] or [place]). - Begin taking a vitamin once daily; prescription has been sent to your [facility] in [place]. - Take vitamin B6 and Unisom together at bedtime to help reduce nausea; - Use Tylenol for migraine relief as needed instead of Excedrin. - Go to the first-floor lab today for blood work to confirm your and check hormone le (more content not included)... Normal [facility] HCG QUANTITATIVEOrdered By: Carmita Mckay on 02-16-2025 [place] [address] m[IU]/mL High NINF C [facility] Comment on above: QUANTITATIVE HCG NOR MAL RANGES Weeks of Gestation (Weeks Since LMP) 3 Weeks (5.8-71.2 mIU/mL) 4 Weeks (9.5-750 mIU/mL) 5 Weeks (217-7138 mIU/mL) 6 Weeks (158-80178 mIU/mL) 7 Weeks (3697-669356 mIU/mL) 8 Weeks (51116-209248 mIU/mL) 9 Weeks (07049-754020 mIU/mL) 10 Weeks (96562-019997 mIU/mL) 12 Weeks (55520-924991 mIU/mL) Referenced to [facility] [address] [facility] HCG.beta subunit QnOrdered B y: Carmita Mckay on 02-16-2025 Interpretation and review of laboratory results Abnormal [facility] Absolute lymphocyte countOrd ered By: Azul Coker on 02-12-2025 Lymphocytes Auto (Unsp spec) [#/Vol] 2.63 10*3/uL 0.83-4.51 [facility] Absolute neutrophil countOrd ered By: Azul Coker on 02-12-2025 Neutrophils (Bld) [#/Vol] 5.0 10*3/uL 2.0-7.7 [facility] Automated lymphocyte count a s percentage of total leukocytesOrdered By: Azul Coker on 02-12-2025 Lymphocytes/100 WBC Auto (Unsp spec) 31.9 % 19-41 [facility] BACTERIAL VAGINOSIS NAATon 0 02-12-2025 Lactobacillus crispatus+gasseri+cool ii + Gardnerella vaginalis + Atopobium vaginae rRNA FUNMI+probe Ql (Vag fld) Not detected Normal Not detected [facility] Comment on above: Order Comment: Speci men Type: SWAB Ordering Facility: [facility] Address: [address] [place] [address] [place] [address] Performed By: #### B VAMP, 27509-1 #### [facility] CLIA [id number] [address] [place] [address] [place] Basophil percentageOrdered B y: Azul Coker on 02-12-2025 Basophils/100 WBC (Bld) 0.1 % 0-1 [facility] Bilirubin directOrdered By: Azul Coker on 02-12-2025 Bilirubin.direct [Mass/Vol] 0.10 mg/dL Normal 0.00-0.30 [facility] Comment on above: Performed By: #### L 501.2450, L500.3400 #### [facility] [address] [place], [place], [id number] Bilirubin, totalOrdered By: Azul Coker on 02-12-2025 Bilirubin [Mass/Vol] 0.23 mg/dL Normal 0.00-1.30 [facility] Comment on above: Performed By: #### L 501.2450, L500.3400 #### [facility] [address] [place], [place], [address] C. trachomatis+N. gonorrhoea e DNA FUNMI+probe Ql (Unsp spec)on 02-12-2025 C. trachomatis rRNA FUNMI+probe Ql (Unsp spec) Not detected Normal Not detected [facility] Comment on above: Order Comment: Speci men Type: SWAB Ordering Facility: [facility] Address: [address] [place] [address] Performed By: #### Marques VAMP, 81904-1 #### [facility] CLIA [id number] [address] [place], [place] [address] [place] N. gonorrhoeae rRNA FUNMI+probe Ql (Unsp spec) Not detected Normal Not detected [facility] Comment on above: Order Comment: Speci men Type: SWAB Ordering Facility: [facility] Address: [address] [place], [place] [address] Performed By: #### Marques VAMP, 57930-2 #### [facility] CLIA [id number] [address] [place] [address] [place] KODAK/TRICHOMONAS NAATon 0 - C. glabrata RNA FUNMI+probe Ql (Vag fld) Not detected Normal Not detected [facility] Comment on above: Order Comment: Speci men Type: SWAB Ordering Facility: [facility] Address: [address] [place] [address] Performed By: #### C VTV #### [facility] CLIA [id number] [address] [place] [address] [place] Kodak sp DNA FUNMI+probe Ql (Vag fld) Not detected Normal Not detected [facility] Comment on above: Order Comment: Speci men Type: SWAB Ordering Facility: [facility] Address: [address] [place] [address] Result Comment: The Kodak species group target includes C. albicans, C. tropicalis, C. parapsilosis, and C. dubliniensis. Performed By: #### C VTV #### [facility] CLIA [id number] [address] [place] [address] [place] T. vaginalis DNA FUNMI+probe Ql (Unsp spec) Not detected Normal Not detected [facility] Comment on above: Order Comment: Speci men Type: SWAB Ordering Facility: [facility] Address: [address] [place] [address] Performed By: #### C VTV #### [facility] CLIA [id number] [address] [place] [address] [place] CBC W/Diff, Automatedon 06-0 Absolute Lymph 2.63 X10 3/uL Normal 0.83-4.51 [facility] Comment on above: Performed By: #### L 500.3400, L501.2450, L100.0100, L500.2500 #### [facility] [address] [facility] [place], [address] Absolute Neut 5.0 X10 3/uL Normal 2.0-7.7 [facility] Comment on above: Performed By: #### L 500.3400, L501.2450, L100.0100, L500.2500 #### [facility] [address] [place], [address] Basophils/100 WBC (Bld) 0.1 % Normal 0-1 [facility] Comment on above: Performed By: #### L 500.3400, L501.2450, L100.0100, L500.2500 #### [facility] [address] [place], [address] Eosinophils/100 WBC (Bld) 1.0 % Normal 0-5 [facility] Comment on above: Performed By: #### L 500.3400, L501.2450, L100.0100, L500.2500 #### [facility] [address] [place], [address] Erythrocyte distribution width (RBC) [Ratio] 13.8 % Normal 11.6-14.6 [facility] Comment on above: Performed By: #### L 500.3400, L501.2450, L100.0100, L500.2500 #### [facility] [address] [place], [address] Hematocrit (Bld) [Volume fraction] 39.1 % Normal 37-47 [facility] Comment on above: Performed By: #### L 500.3400, L501.2450, L100.0100, L500.2500 #### [facility] [address] [place], [address] Hemoglobin (Bld) [Mass/Vol] 13.2 g/dL Normal 12.0-15.0 [facility] Comment on above: Performed By: #### L 500.3400, L501.2450, L100.0100, L500.2500 #### [facility] [address] [place], [address] IG% 0.400 Normal 0.0-0.9 [facility] Comment on above: Result Comment: IG% - Immature Granulocytes (promyelocytes, myelocytes and metamyelocytes) > 1% indicates that a LEFT SHIFT is Present. Performed By: #### L 500.3400, L501.2450, L100.0100, L500.2500 #### [facility] [address] [place], [address] Lymphocytes/100 WBC (Bld) 31.9 % Normal 19-41 [facility] Comment on above: Performed By: #### L 500.3400, L501.2450, L100.0100, L500.2500 #### [facility] [address] [place], [address] MCH (RBC) [Entitic mass] 30.1 pg Normal 27.0-32.0 [facility] Comment on above: Performed By: #### L 500.3400, L501.2450, L100.0100, L500.2500 #### [facility] [address] [place], [address] MCHC (RBC) [Mass/Vol] 33.8 g/dL Normal 32-36 [facility] Comment on above: Performed By: #### L 500.3400, L501.2450, L100.0100, L500.2500 #### [facility] [address] [place], [address] MCV (RBC) [Entitic vol] 89.1 fL Normal 81-99 [facility] Comment on above: Performed By: #### L 500.3400, L501.2450, L100.0100, L500.2500 #### [facility] [address] [place], [address] Monocytes/100 WBC (Bld) 6.7 % Normal 0-[address] [facility] Comment on above: Performed By: #### L 500.3400, L501.2450, L100.0100, L500.2500 #### [facility] [address] [place], [address] Neutrophils/100 WBC (Bld) 59.9 % Normal 47-70 [facility] Comment on above: Performed By: #### L 500.3400, L501.2450, L100.0100, L500.2500 #### [facility] [address] [place], [address] Nucleated RBC (Bld) [#/Vol] 0 10*3/uL Normal 0-5 [facility] Comment on above: Performed By: #### L 500.3400, L501.2450, L100.0100, L500.2500 #### [facility] [address] [place], [address] Platelet mean volume (Bld) [Entitic vol] 9.9 fL Normal 6.2-12.0 [facility] Comment on above: Performed By: #### L 500.3400, L501.2450, L100.0100, L500.2500 #### [facility] [address] [place], [address] Platelets (Bld) [#/Vol] 243 10*3/uL Normal 150-450 [facility] Comment on above: Performed By: #### L 500.3400, L501.2450, L100.0100, L500.2500 #### [facility] [address] [place], [address] RBC (Bld) [#/Vol] 4.39 10*6/uL Normal 4.2-5.4 [facility] Comment on above: Performed By: #### L 500.3400, L501.2450, L100.0100, L500.2500 #### [facility] [address] [place], [address] RDW SD 45.1 fl High 35.1-43.9 [facility] Comment on above: Performed By: #### L 500.3400, L501.2450, L100.0100, L500.2500 #### [facility] [address] [place], [address] WBC (Bld) [#/Vol] 8.3 10*3/uL Normal 4.4-11.0 [facility] Comment on above: Performed By: #### L 500.3400, L501.2450, L100.0100, L500.2500 #### [facility] [address] [place], [place], [address] CNOVon 02-12-2025 CNOV Office Visit (UCWSTR ) JERARDO GRISSOM ([id number]) 4 F Date Time Provider Department 02/12/25 11:30 AM [facility] SCOTT [facility] During your visit today, we recorded the following information about you: Temperature Pulse Respiration Blood pressure 97.3 degrees 100/minute 18/minute 114/79 Weight Last Period 101 kg 01/10/25 Mason Scott APRN.BRICK TOSSER 02/12/2025 12:35 PM Signed Subjective HPI Nontoxic-appearing 24-year-old female presents urgent care chief complaint sore throat ear pain. Duration of symptoms 1 week. Associated symptoms listed above. OTC medications none. No difficulty swallowing and secretion decreased range of motion neck no fever or trismus. No ear trauma loss of hearing. Additionally has had dysuria frequency with some vaginal discharge. Describes vaginal discharge yellow in color. This has been present for around 2 weeks. Does have some concerns for STDs. Has had BV in the past. Also is late for her menstrual cycle. Last menstrual cycle 429 of this year. Past medical history prescription medications allergies reviewed. No abdominal pain flank pain. Past medical history prescription medications allergies reviewed. .Patient presents with: Sore Throat: Bilat ear pain x 1 week Vaginal Discharge: Yellow colored x 2 weeks Urinary Problem: Frequency of urination x 2 weeks Menstrual Problem: LMP 01/05, 5-6 days of period PAST MEDICAL HISTORY Diagnosis Date History of DANDC 03/26/2024 under ultrasound guidance For Missed AB PAST SURGICAL HISTORY Procedure Laterality Date DANDC SUCTION INCOMP , ANY TRIMESTER 03/26/2024 Suction DANDC under sultrasound guidance for missed AB at [facility] DANDC, DIAG AND/OR THERAPEUTIC 06/2022 ALLERGIES Patient has no known allergies. MEDICATIONS No prescriptions on file. No family history on file. Social History Tobacco Use Smoking status: Never Smokeless tobacco: Never Substance Use Topics Drug use: Yes Types: Marijuana BP 114/79 Pulse 100 Temp 36.3 ?C (97.3 ?F) Resp 18 Wt 101 kg (222 lb 10.6 oz) LMP 01/10/2025 (Approximate) SpO2 100% Review of Systems Constitutional: Negative for chills, fever and malaise/fatigue. HENT: Positive for ear pain and sore throat. Negative for congestion, ear discharge and sinus pain. Eyes: Negative for blurred vision, pain, discharge and redness. Respiratory: Negative for cough, hemoptysis, sputum production, shortness of breath, wheezing and stridor. Cardiovascular: Negative for chest pain. Gastrointestinal: Negative for abdominal pain, diarrhea, nausea and vomiting. Genitourinary: Positive for dysuria, frequency and urgency. Negative for flank pain and hematuria. Musculoskeletal: Negative for myalgias. Skin: Negative for itching and rash. Neurological: Negative for dizziness and headaches. Objective Physical Exam Vitals and nursing note reviewed. Constitutional: General: She is not in acute distress. Appearance: She is not diaphoretic. HENT: Head: Normocephalic. Jaw: No trismus, tenderness, swelling or pain on movement. Right Ear: Hearing, ear canal and external ear normal. No decreased hearing noted. No drainage, swelling or tenderness. Tympanic membrane is not perforated, erythematous or bulging. Left Ear: Hearing, ear canal and external ear normal. No decreased hearing noted. No drainage, swelling or tenderness. Tympanic membrane is not perforated, erythematous or bulging. Ears: Comments: Cerumen impaction bilateral Mouth/Throat: Mouth: Mucous membranes are moist. Pharynx: Oropharynx is clear. Uvula midline. Posterior oropharyngeal erythema present. No pharyngeal swelling, oropharyngeal exudate or uvula swelling. Tonsils: No tonsillar abscesses. Eyes: Conjunctiva/sclera: Conjunctivae normal. Pupils: Pupils are equal, round, and reactive to light. Cardiovascular: Rate and Rhythm: Normal rate and regular rhythm. Pulses: Normal pulses. Heart sounds: Normal heart sounds. Pulmonary: Effort: Pulmonary effort is normal. No tachypnea, accessory muscle usage or respiratory distress. Breath sounds: Normal breath sounds. No stridor. No wheezing, rhonchi or rales. Chest: Chest wall: No tenderness. Abdominal: General: Bowel sounds are normal. There is no distension. Palpations: Abdomen is soft. Abdomen is not rigid. Tenderness: There is abdominal tenderness. There is no right CVA tenderness, left CVA tenderness, guarding or rebound. Negative signs include Park's sign and McBurney's sign. Musculoskeletal: General: No tenderness. Cervical back: Normal range of motion and neck supple. No edema, erythema, rigidity or tenderness. No pain with movement. Normal range of motion. Lymphadenopathy: Head: Right side of head: No submental, submandibular, tonsillar, preauricular, posterior auricular or occipital adenopathy. Left side of head: (more content not included)... Normal [facility] Emergency Department Summary on 02-12-2025 Emergency Department Summary [facility] Medical Records Department [address] [place] [address] Emergency Department Summary 02/12/25 MR#: [id number] Acct: [id number] Name: JERARDO GRISSOM Rep #: [id number] : 2000 24 From: Azul ROSA PCP: Care Physician,No Primary Status:DEP ER Location: ED HPI History of Present Illness Chief Complaint: Abd Pain Narrative Narrative: Patient presenting today after being sent over from urgent care. She went to urgent care due to left-sided throat pain she has had over the past 2 weeks, she had a negative rapid strep test there. She also reported that she is 1 week late on her period, she had a positive test there. 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 Her LMP was at the end of December. She denies abnormal vaginal bleeding. She reports a history of pelvic cramping intermittently since having her miscarriage last March. She is not currently having any pelvic pain. She also reports that over the past 2 weeks she has had epigastric abdominal pain. She reports that at this time her pain is minimal. She denies fevers, chills, nausea, and vomiting. PFSH PFSH Medical History Migraine headache Heartburn Former smoker Home Medications ???Medication ???Instructions ???Recorded ???Last Taken ???Type NK 03/19/24 Unknown History Allergy/AdvReac Type Severity Reaction Status Date / Time No Known Allergies Allergy Verified 02/12/25 12:28 Family History no significant family his Surgical History Hx of dilation and curettage Social History household members: family and children housing: house current occupational status: unemployed Smoking Status: Never smoker ROS ROS ED Constitutional Constitutional ED: Denies chills or fever(s) Cardiovascular Cardiovascular: Denies chest pain Respiratory/Chest Respiratory/Chest: Denies dyspnea Gastrointestinal Gastrointestinal: Reports abdominal pain; Denies constipation, diarrhea, nausea or vomiting Genitourinary Genitourinary ED: Denies dysuria, hematuria or urinary urgency Musculoskeletal Musculoskeletal: Denies arthralgias or myalgias Integumentary Denies rash Neurologic Neurologic: Denies weakness EXAM Physical Exam Const Vital Signs: 02/12/25 12:28 02/12/25 14:09 Temperature 97 F L 97 F L Temperature Source Temporal Pulse Rate 96 81 Respiratory Rate 14 14 Blood Pressure 154/95 H 117/77 Blood Pressure Mean 114 90 Pulse Ox 99 99 Oxygen Delivery Method Room Air Positive well nourished, well developed and no apparent distress General Appearance ED: well developed HEENT Reports normocephalic and head/scalp atraumatic HEENT Narrative: Posterior pharynx clear, no tonsillar exudate, uvula midline Mouth ED: Yes moist mucous membranes normal Eyes PERRL and EOMs intact bilaterally Neck full ROM, no lymphadenopathy and supple Chest Wall inspection of chest normal Resp normal respiratory effort and clear to auscultation bilaterally Cardio regular rate and regular rhythm GI soft to palpation, non-distended and no masses GI Narrative: No right upper quadrant tenderness, minimal epigastric tenderness on exam, negative Park sign, no rigidity or guarding Back/Spine normal ROM and normal to inspection Extremity normal to inspection and full ROM Neuro oriented x3, CN's II-XII intact bilaterally, moves all extremities, no focal motor deficits and no sensory deficits noted Sensorium / Orientation: awake and alert Psych mental status grossly normal and thought process normal Skin no rashes or lesions noted and no wounds Physical Exam Const Vital Signs: 02/12/25 12:28 02/12/25 14:09 Temperature 97 F L 97 F L Temperature Source Temporal Pulse Rate 96 81 Respiratory Rate 14 14 Blood Pressure 154/95 H 117/77 Blood Pressure Mean 114 90 Pulse Ox 99 99 Oxygen Delivery Method Room Air MDM MDM MDM Narrative Medical decision making narrative: Patient presenting today after being sent over from urgent care. She had right upper quadrant tenderness while at the urgent care, however she denies currently having any right upper quadrant abdominal pain. She has had intermittent upper abdominal pain for the past few weeks. On my exam, she has a negative Park sign, she has minimal tenderness to her epigastric region. She reports that the reason she went to urgent care was for left-sided throat pain. They did a rapid strep which was negative. On exam, she does not have any erythema to the posterior pharynx, her uvula is midline, no sign of peritonsillar abscess. Suspect viral pharyngitis. Labs obtained here, her CBC, LFTs, and (more content not included)... Normal [facility] Eosinophil percentageOrdered By: Azul Coker on 02-12-2025 Eosinophils/100 WBC (Bld) 1.0 % 0-5 [facility] Erythrocyte distribution wid th ratioOrdered By: Azul Coker on 02-12-2025 Erythrocyte distribution width (RBC) [Ratio] 13.8 % 11.6-14.6 [facility] Erythrocyte distribution wid th standard deviationOrdered By: Azul Coker on 02-12-2025 Erythrocyte distribution width (RBC) [Ratio] 45.1 fl High 35.1-43.9 [facility] Hematocrit Auto (Bld) [Volum e fraction]Ordered By: Azul Coker on 02-12-2025 Hematocrit (Bld) [Volume fraction] 39.1 % 37-47 [facility] Hemoglobin measurementOrdere d By: Azul Coker on 02-12-2025 Hemoglobin (Bld) [Mass/Vol] 13.2 g/dL 12.0-15.0 [facility] Immature granulocytes/100 WB C Auto (Bld)Ordered By: Azul Coker on 02-12-2025 Immature granulocytes/100 WBC (Bld) 0.400 % 0.0-0.9 [facility] Comment on above: IG% - Immature Granu locytes (promyelocytes, myelocytes and metamyelocytes) > 1% indicates that a LEFT SHIFT is Present. Lipase measurementOrdered By : Azul Coker on 02-12-2025 Lipase [Catalytic activity/Vol] 11 U/L Low 13-75 [facility] Comment on above: Please note:LIPASE r evised reference range effective 22. New Lipase methodology. Expected to produce lower values than the previous assay method. NEW Reference Range: 13 - 75 U/L Result Comment: Fausto hassan note: LIPASE revised reference range effective 22. New Lipase methodology. Expected to produce lower values than the previous assay method. NEW Reference Range: 13 - 75 U/L Performed By: #### L 501.2450, L500.3400 #### [facility] [address] [place], [address] Liver Profileon 02-12-2025 ALK PHOS 64 U/L Normal 35-104 [facility] Comment on above: Performed By: #### L 501.2450, L500.3400 #### [facility] [address] [place], [address] T PROT 7.7 g/dL Normal 5.9-8.4 [facility] Comment on above: Performed By: #### L 501.2450, L500.3400 #### [facility] [address] [place], [address] Liver ProfileOrdered By: Adonay Coker on 02-12-2025 AST [Catalytic activity/Vol] 24 U/L Normal <=31 [facility] Comment on above: Performed By: #### L 501.3630, L500.3404 #### [facility] [address] [place], [address] MCV (mean corpuscular volume ) determinationOrdered By: Azul Coker on 02-12-2025 MCV (RBC) [Entitic vol] 89.1 fL 81-99 [facility] Mean corpuscular hemoglobin (MCH) determinationOrdered By: Azul Coker on 02-12-2025 MCH (RBC) [Entitic mass] 30.1 pg 27.0-32.0 [facility] Mean corpuscular hemoglobin concentration (MCHC) determinationOrdered By: Azul Coker on 02-12-2025 MCHC (RBC) [Mass/Vol] 33.8 g/dL 32-36 [facility] Mean platelet volume determi nationOrdered By: Azul Coker on 02-12-2025 Platelet mean volume (Bld) [Entitic vol] 9.9 fL 6.2-12.0 [facility] Monocyte percentageOrdered B y: Azul Coker on 02-12-2025 Monocytes/100 WBC (Bld) 6.7 % 0-10 [facility] Neutrophil percentageOrdered By: Azul Coker on 02-12-2025 Neutrophils/100 WBC (Bld) 59.9 % 47-70 [facility] Nucleated red blood cell per centageOrdered By: Azul Coker on 02-12-2025 Nucleated RBC/100 WBC (Bld) [Ratio] 0 % 0-5 [facility] Platelet countOrdered By: Tyra Coker on 02-12-2025 Platelets (Bld) [#/Vol] 243 10*3/uL 150-450 [facility] RBC Auto (Bld) [#/Vol]Ordere d By: Azul Coker on 02-12-2025 RBC (Bld) [#/Vol] 4.39 10*6/uL 4.2-5.4 [facility] STREP A MOLECULAR (POC)on Procedural Control Valid [facility] Strep A (POCT) Negative Negative [facility] Serum globulin measurementOr dered By: Azul Coker on 02-12-2025 Globulin (S) [Mass/Vol] 3.3 g/dL Normal 2.2-4.[address] [facility] Comment on above: Performed By: #### L 501.2450, L500.3400 #### [facility] [address] [facility] [place], [address] Serum or plasma alanine guerra otransferase (ALT) measurementOrdered By: zAul Coker on 02-12-2025 ALT [Catalytic activity/Vol] 33 U/L Normal <=34 [facility] Comment on above: Performed By: #### L 501.2450, L500.3400 #### [facility] [address] [place], [address] Serum or plasma albumin eladia urement (mass/volume)Ordered By: Azul Coker on 02-12-2025 Albumin [Mass/Vol] 4.4 g/dL Normal 3.5-5.0 [facility] Comment on above: Performed By: #### L 501.2450, L500.3400 #### [facility] [address] [facility] [place], [address] Serum or plasma alkaline kesha sphatase measurementOrdered By: Azul Coker on 02-12-2025 ALP [Catalytic activity/Vol] 64 U/L 35-104 [facility] Total proteinOrdered By: Adonay Coker on 02-12-2025 Protein [Mass/Vol] 7.7 g/dL 5.9-8.4 [facility] UA DIP, URINE (POC)on 2024 BILIRUBIN UA (POCT) Small Abnormal Negative Francisco Javier [facility] CLARITY UA (POCT) Clear [facility] COLOR UA (POCT) Dark yellow [facility] GLUCOSE UA (POCT) Negative Negative mg/dL [facility] Hemoglobin Ql (U) Negative Negative [facility] Interpretation and review of laboratory results Abnormal [facility] KETONE UA (POCT) >=160 Abnormal Negative mg/dL [facility] LEUKOCYTES UA (POCT) Negative Negative [facility] NITRITE UA (POCT) Negative Negative [facility] PH UA (POCT) 6.5 4.5 - 8.0 [facility] Protein Ql (U) Negative Negative mg/dL [facility] SPECIFIC GRAVITY UA (POCT) 1.02 1.005 - 1.030 [facility] UROBILINOGEN UA (POCT) 0.2 Nicolasa l E.U./dL [facility] Location:[address], [address] POINT OF CARE [facility] UA DIP,URINE HCG (POC)on Beta HCG ( test) Ql (U) Positive Abnormal Negative [facility] Comment on above: Location:[address], [facility] Interpretation and review of laboratory results Abnormal [facility] Clinical Informatics Physician (POCT) Internal QC OK [facility] Location:[address] POINT OF CARE [facility] White blood cell (WBC) count Ordered By: Azul Coker on 02-12-2025 WBC (Bld) [#/Vol] 8.3 10*3/uL 4.4-11.0 [facility] [id number] 2024 MR/POSTOPAN2 [facility] Medical Records Department [address] [place] [address] Anesthesia Postop Eval II 03/27/24 1115 MR#: [id number] Acct: [id number] Name: JERARDO GRISSOM Rep #: [id number] : 2000 24 From: Noel Lewis MD PCP: Care Physician,No Primary Status:[facility] Y Race: AA Location: [facility] Anesthesia Postop Eval I Sum Postop Eval Completion status Anesthesia document: Postop Eval 1 completed: Yes Anesthesia Postop Eval I Summary Anesthesia Postop Eval I Summary: Anesthesia Postop Eval I: Assessment Summary Airway patent Yes 03/26/24 14:28 POWDERED METAL SUPERVISOR.OSKAR Spontaneous unlabored Yes 03/26/24 14:28 POWDERED METAL SUPERVISORALDO respirations Mental status Awake,Calm 03/26/24 14:28 POWDERED METAL SUPERVISOR.OSKAR nausea No 03/26/24 14:28 POWDERED METAL SUPERVISOR.OSKAR Vomiting No 03/26/24 14:28 POWDERED METAL SUPERVISOR.OSKAR Anesthesia Postop Eval I: Fluid Summary Crystalloid volume administer 600 03/26/24 14:28 POWDERED METAL SUPERVISOR.OSKAR (ml) Colloids volume administered ( ml) Blood Product volume administered (ml) Total IV fluid infused 600 03/26/24 14:28 POWDERED METAL SUPERVISOR.OSKAR Anesthesia Postop Eval I: Summary Notes Anesthesia Complication No 03/26/24 14:28 POWDERED METAL SUPERVISOR.OSKAR Anesthesia Complication Comment: Post-operative progress note Anesthesia: Postop Eval II Evaluation Mental status: Awake and Calm Pain Level: 1 nausea: No Vomiting: No Complications Anesthesia Complication: No 03/27/24 1115 Date Noel Lewis MD Cosignmargo Signature: Date CC: Signed Normal [facility] Discharge Instructionon 03-09 Discharge Instruction [facility] Medical Records Department [address] [place] [address] Instructions for Home/Discharge Instructions 03/26/24 1426 MR#: [id number] Acct: [id number] Name: JERARDO GRISSOM Rep #: [id number] : 2000 23 From: Heavenly White DO PCP: Care Physician,No Primary Status:REG [facility] Discharge Instructions Diet Discharge Diet: No restrictions Activity Discharge Activity: May Drive (once you are more than 24 hours out from surgery) and May Shower (once you are more than 24 hours out from surgery) May resume sexual activity in: 2 weeks (nothing in the vagina and no soaking in water while having vaginal bleeding and for at least 2 weeks) Ice area for (Minutes): 15 Weight Bearing Status: Weight bearing as tolerated Lifting Restrictions: none Dressing / Incision Call your doctor if you observe: Fever of 101 or Higher, Coldness, Increased Pain, Numbness or Tingling, Change in Color, Inability to urinate, Inability to have a bowel movement, Using more than 1 pad per hour, Shortness of breath, Dizziness, Fainting spells, Swelling in the ankles, Chest pain, Prolonged hiccupping, Increased palpitations (irregular heartbeat), Calf discomfort and Uncontrolled pain Cleanse incision/area with: Soap Water Follow Up Care Please Follow Up With: Heavenly White DO When: 1-2 weeks Test Results: Test results from this visit will be discussed in further detail at your follow-up appointment, if applicable. Discharge Plan Admission Primary Reason for Your Visit: surgery Attending Provider: Heavenly White Primary Care Provider: Care Physician,No Primary Instructions Print Language: Italian Discharge Orders/Prescriptions Prescriptions: No Action NK Other Ambulatory Orders: Type Screen - PAT ONLY (Routine) Timeframe: [id number] Facility: [facility] - Location: Laboratory Ordered By: Dr. Heavenly White Referrals / Follow Up: Care Physician,No Primary [Primary Care Provider] - Disposition Disposition (needs filled in before D/C Order can be placed): Home, Self Care 03/26/24 1427 Heavenly White DO CC: No Primary Care Physician Signed Normal [facility] H AND P Exam - OB/GYNon 03-09 H&P Exam - RUG TOUCH UP PAINTER [facility] Medical Records Department [address] [place] [address] H P Exam - RUG TOUCH UP PAINTER 03/26/24 1347 MR#: [id number] Acct: [id number] Name: JERARDO GRISSOM Rep #: [id number] : 2000 23 From: Heavenly White DO PCP: Care Physician,No Primary Status:[facility] Location: [place] [address] History and Physical Date of Admission: 03/26/24 HPI: Patient presents with miscarriage. She reports 2 ED visits in the past week. One in [place] and the other here in [place] where she learned of the loss. She denies vaginal bleeding or pain. OB History No obstetric history on file. Quirk Sander History LMP: Age at Menarche: Age at First : Age at Menopause: Quirk Sander History Comments: Sexual Activity: No sexual activity data on record; No partner data on record Contraception: No contraception data on record ? PAST MEDICAL HISTORY History reviewed. No pertinent past medical history. PAST SURGICAL HISTORY PAST SURGICAL HISTORY Procedure Laterality Date ??? D C, DIAG AND/OR THERAPEUTIC 06/2022 FAMILY HISTORY No family history on file. SOCIAL HISTORY CURRENT MEDICATIONSExpand by Default No current outpatient medications on file. No current facility-administered medications for this visit. Allergies As of Date: 03/20/2024 (Not on File) Fully Assessed 03/20/2024 Allergies and current medication updated:Yes EXAM: BP 122/58 Wt 203 lb (92.1kg) GENERAL: pleasant, female in no apparent distress ASSESSMENT AND PLAN: 23yo female with missed ED records from [place] reviewed. Bedside TVUS today shows IUP measuring 8 3 with no FCA. Discussed R/B/A of treatment options and patient wishes to proceed with suction D C at [facility]. Informed consent signed and all questions answered. Assessment Plan Assessment/Plan (1) Missed : 03/26/24 1347 Cosigner Signature (if applicable): CC: Dr. Heavenly White, DO; No Primary Care Physician Signed [facility] MR/POSTOP.[place] 03-26-2024 MR/POSTOP.[facility] Medical Records Department [address] [place] [address] Anesthesia Postop Eval I 03/26/241426 MR#: [id number] Acct: [id number] Name: JERARDO GRISSOM Rep #: [id number] : 2000 23 From: Alayna Villafuerte CRNA PCP: Care Physician,No Primary Status:REG [facility] Y Race: AA Location: [place] [address] Anesthesia: Postop Eval I Current Vital Signs Temperature: 97.2 F Pulse Rate: 92 Blood Pressure: 111/66 Respiratory Rate: 16 Pulse Ox: 100 Oxygen Delivery Method: Room Air Assessment Airway patent: Yes Spontaneous unlabored respirations: Yes Mental status: Awake and Calm nausea: No Vomiting: No Anesthesia Complication: No Fluid Hydration Crystalloid volume administer (ml): 600 Total IV fluid infused: 600 Progress Note Anesthesia document: Postop Eval 1 completed: Yes 03/26/24 1428 Date Alayna Villafuerte POWDERED METAL SUPERVISOR Cosigner Signature: Date CC: Signed Normal [facility] Operative Reporton 4 Operative Report [facility] Medical Records Department [address] [place] [address] Operative Report 03/26/24 1417 MR#: [id number] Acct: [id number] Name: JERARDO GRISSOM Rep #: [id number] : 2000 23 From: Heavenly White DO PCP: Care Physician,No Primary Status:[facility] Location: [facility] Problems Associated Problem List Diagnoses (1) Missed : Report of Operation Date of Procedure: 03/26/24 Pre-Operative Diagnosis: MAB at 8 week Post-Operative Diagnosis: As above Surgery/Procedure Performed:: Suction D C under ultrasound guidance Description of Surgical Findings:: Enlarged 8-9 week sized uterus Surgeon: Heavenly White dobby loom weaver: None Type of Anesthesia: MAC Special Medications: None Specimen's removed: Products of conception Drains: None Estimated Blood Loss (mL): 20 Fluids Replaced: See anesthesia record Description of Procedure: Patient was taken to the operating room where MAC anesthesia was induced and found to be adequate. She was prepped and draped in the dorsal lithotomy position using yellowfin stirrups. A weighted speculum was placed in the vagina to expose the cervix. A single-tooth tenaculum was placed on the anterior lip of the cervix. Local was infiltrated circumferentially within the cervix. The cervix was serially dilated to accommodate a size 9 suction curettage. The suction curettage was performed to remove the products of conception under ultrasound guidance. A sharp curettage was performed along all 4 uterine huizar with a good uterine cry. An ultrasound was performed at the end of the procedure confirming no obvious retained products of conception, however the ultrasound was limited given body habitus. Bleeding was hemostatic. All instruments were removed from the vagina and a vaginal sweep was performed. Sponge counts were correct. The patient was taken to the recovery in stable condition. Grafts/Implants Used: None Procedure Start Time: 13:54 Procedure Stop Time: 14:16 Complications None Admit VTE Documentation VTE Present on Admission: No VTE Mechan Device Prophylaxis: SCD's 03/26/242132 Cosigner Signature (if applicable): CC: Dr. Heavenly White, ; No Primary Care Physician Signed Normal [facility] Surgery Specimen Level Heath 03-26-2024 Surgery Specimen Level IV -------- Patient Age/Sex Location Account Attending Physician -------- EMMANUELJERARDO TARIQ [facility] [id number] Dr. Heavenly White, -------- Specimen: [id number] Received: 03/26/24 Status: ARUNKathy Morse Num: [id number] Spec Type: PROD CONC Subm Dr: Dr. Heavenly White, HEADER OPERATION: D C, suction PRE-OP DIAGNOSIS: Missed TISSUE SUBMITTED: Products of conception -------- MICROSCOPIC DIAGNOSIS Endometrium, curettage: Chorionic villi, decidualized stroma and trophoblastic cells (products of conception). AM:mr 03/30/2024 MICROSCOPIC DESCRIPTION Slides are reviewed. GROSS DESCRIPTION Received in fixative is one container labeled with the patient's name and designated Products of conception. The specimen consists of multipe fragments of pink hemorrhagic soft tissue measuring in aggregate 8.0 x 8.0 x 2.0cm. tissue is not identified. Cook'S Assistant tissue are submitted in three cassettes. / 2024 TC:5 CPT:26976 -------- Patient Age/Sex Location Account Attending Physician -------- JERARDO GRISSOM [facility] [id number] Dr. Heavenly White DO -------- Signed (signature on file) Dr. Clifford Singletary DO 03/30/24 1355 -------- Normal [facility] Comment on above: Performed By: #### L 500.3400, L501.2450, L100.0100, L500.2500 #### [facility] [address] [place], [address] Type AND Screenon 03-26-2024 Ab SCREEN GEL Negative Normal [facility] Comment on above: Order Comment: S Performed By: #### L 500.3400, L501.2450, L100.0100, L500.2500 #### [facility] [address] [place], [address] CNOVon 03-20-2024 CNOV Office Visit (OBGYWM ) JERARDO GRISSOM ([id number]) 4 F Date Time Provider Department 03/20/24 3:10 PM ROCIO MERCHANT During your visit today, we recorded the following information about you: Blood pressure Weight 122/58 92.1 kg Rocio Merchant MD 03/24/2024 3:38 PM Signed Mechanical Maintenance offered: Patient declines. Jerardo Grissom is a 23 year old female who presents for problem visit. HPI: Patient presents with miscarriage. She reports 2 ED visits in the past week. One in [place] and the other here in [place] where she learned of the loss. She denies vaginal bleeding or pain. OB History No obstetric history on file. Quirk Sander History LMP: Age at Menarche: Age at First : Age at Menopause: Quirk Sander History Comments: Sexual Activity: No sexual activity data on record; No partner data on record Contraception: No contraception data on record History reviewed. No pertinent past medical history. PAST SURGICAL HISTORY Procedure Laterality Date DANDC, DIAG AND/OR THERAPEUTIC 06/2022 No family history on file. No current outpatient medications on file. No current facility-administered medications for this visit. Allergies As of Date: 03/20/2024 (Not on File) Fully Assessed 03/20/2024 Allergies and current medication updated:Yes EXAM: BP 122/58 Wt 203 lb (92.1kg) GENERAL: pleasant, female in no apparent distress ASSESSMENT AND PLAN: 23yo female with missed ED records from [place] reviewed. Bedside TVUS today shows IUP measuring 8AND3 with no FCA. Discussed R/B/A of treatment options and patient wishes to proceed with suction DANDC at [facility]. Informed consent signed and all questions answered. Medical Decision Making: Problems: Low: Acute, uncomplicated illness or injury Data: Unique source(s) for external note(s) reviewed: 1 Unique test result(s) reviewed: 2 Risk: Moderate: Moderate risk from testing/treatment Medical Decision Making Level: 4 - Moderate Rocio Merchant MD Referring Provider: SHIVAM DAVALOS [[id number]] Allergies As of Date: 03/20/2024 (Not on File) Date Reviewed: 03/20/2024 Reviewed by: Gina Blount MA - Fully Assessed Reason for Visit: MAB [Other] Primary Visit Diagnosis:Missed [O02.1] Problem List As Of Date: 03/20/2024 (None) Encounter Status:Closed by ROCIO MERCHANT on 03/24/24 [facility] 03-18-2024 CNPN Telephone (OBGYWM) JERARDO GRISSOM ([id number]) 4 F Date Time Provider Department 03/18/24 SHIVAM DAVALSO During your visit today, we recorded the following information about you: Dasha Donis LPN 03/18/2024 10:53 AM Signed Left message for patient to call office. Patient needs to schedule pre-operative appointment with Dr. Davalos today. Surgery is schedule at [facility] on 03/20/24. Abbey Rodriguez RN 03/18/2024 11:08 AM Signed Pt notified and appt scheduled. OSCAR Roe Tara, RN 03/18/2024 11:33 AM Signed Pt called back in and was rescheduled by PSS to Dr. Petersen tomorrow at 2:50pm. Unable to get ride to come in for appt today. Is that okay? OSCAR Roe Rebecca L, MD 03/18/2024 12:08 PM Signed Yes that is good. Thanks. [facility] for missed ab. Surgery added on Saturday am. MD Nicola Lion Jennifer, MD 03/19/2024 4:18 PM Signed Pt did not show for pre-op. Per RR cancel surgery and see if patient wants to do an office follow up instead. Abbey Rodriguez RN 03/19/2024 4:40 PM Signed Pt made aware that her surgery is cancelled for tomorrow per Dr. Davalos d/t missed pre-op appointment today. Attempted to make appt tomorrow for missed AB with KJ at 1620, but patient needs financial clearance. [address] on hold for patient. [facility] notified of cancelled surgery. Abbey Rodriguez RN Allergies As of Date: 03/18/2024 (Not on File) Date Reviewed: Never Reviewed Problem List As Of Date: 03/18/2024 (None) Encounter Status:Closed by ABBEY RODRIGUEZ on 03/18/[address] [facility] [id number] 03-16-2024 ABO and Rh group Nom (Bld) Blood group O Rh(D) positive Normal [facility] Comment on above: Performed By: #### L 500.3400, L501.2450, L100.0100, L500.2500 #### [facility] [address] [place], [address] CBC W/Diff, Automatedon 07- PLT EST ADEQUATE Normal ADEQ [facility] Comment on above: Performed By: #### L 100.0100, L700.6800, L700.8000, B882-1, L500.4050 #### [facility] [address] [place], [address] Comprehensive Metabolic Prof ilon 03-16-2024 Albumin [Mass/Vol] 3.6 g/dL Normal 3.2-5.0 [facility] Comment on above: Performed By: #### L 100.0100, L700.6800, L700.8000, B882-1, L500.4050 #### [facility] [address] [place], [address] Albumin/Globulin [Mass ratio] 0.9 {ratio} Normal 0.9-2.4 [facility] Comment on above: Performed By: #### L 100.0100, L700.6800, L700.8000, B882-1, L500.4050 #### [facility] [address] [place], [address] ALK P 56 U/L Normal 45-117 [facility] Comment on above: Performed By: #### L 100.0100, L700.6800, L700.8000, B882-1, L500.4050 #### [facility] [address] [place], [address] ALT [Catalytic activity/Vol] 15 U/L Normal 13-56 [facility] Comment on above: Performed By: #### L 100.0100, L700.6800, L700.8000, B882-1, L500.4050 #### [facility] [address] [place], [address] AST [Catalytic activity/Vol] 11 U/L Low 15-37 [facility] Comment on above: Performed By: #### L 100.0100, L700.6800, L700.8000, B882-1, L500.4050 #### [facility] [address] [place], [address] Bilirubin [Mass/Vol] 0.20 mg/dL Normal 0.20-1.00 [facility] Comment on above: Result Comment: For patients on eltrombopag therapy, use of Dimension [place] TBIL is not recommended. Performed By: #### L 100.0100, L700.6800, L700.8000, B882-1, L500.4050 #### [facility] [address] [place], [address] BUN/CRE 7.5 RATIO Low 10-20 [facility] Comment on above: Performed By: #### L 100.0100, L700.6800, L700.8000, B882-1, L500.4050 #### [facility] [address] [place], [address] CA,Total 8.9 mg/dL Normal 8.5-10.1 [facility] Comment on above: Performed By: #### L 100.0100, L700.6800, L700.8000, B882-1, L500.4050 #### [facility] [address] [place], [address] Chloride [Moles/Vol] 106 mmol/L Normal 98-107 [facility] Comment on above: Performed By: #### L 100.0100, L700.6800, L700.8000, B882-1, L500.4050 #### [facility] [address] [place], [address] CO2 [Moles/Vol] 23.0 mmol/L Normal 21.0-32.0 [facility] Comment on above: Performed By: #### L 100.0100, L700.6800, L700.8000, B882-1, L500.4050 #### [facility] [address] [place], [address] Creatinine [Mass/Vol] 0.67 mg/dL Normal 0.55-1.02 [facility] Comment on above: Result Comment: The validity of the calculated GFR GFRAA in patients over 70 years has not been determined. Clinical correlation is essential. Performed By: #### L 100.0100, L700.6800, L700.8000, B882-1, L500.4050 #### [facility] [address] [place], [address] ECRCL 132.42 ml/min Normal [facility] Comment on above: Performed By: #### L 100.0100, L700.6800, L700.8000, B882-1, L500.4050 #### [facility] [address] [place], [address] EST GFR - AA 142 mL/min Normal >60 [facility] Comment on above: Result Comment: Afri can [place]gas[place] GFR Calc Performed By: #### L 100.0100, L700.6800, L700.8000, B882-1, L500.4050 #### [facility] [address] [place], [address] GAP 5 Normal 5-15 [facility] Comment on above: Performed By: #### L 100.0100, L700.6800, L700.8000, B882-1, L500.4050 #### [facility] [address] [place], [address] GFR/1.73 sq M.predicted among non-blacks MDRD (S/P/Bld) [Vol rate/Area] 118 mL/min/{1.73_m2} Normal >60 [facility] Comment on above: Result Comment: Non- GFR Calc Performed By: #### L 100.0100, L700.6800, L700.8000, B882-1, L500.4050 #### [facility] [address] [place], [address] Globulin (S) [Mass/Vol] 4.0 g/dL Normal 2.2-4.[address] [facility] Comment on above: Performed By: #### L 100.0100, L700.6800, L700.8000, B882-1, L500.4050 #### [facility] [address] [place], [address] Glucose [Mass/Vol] 82 mg/dL Normal 74-106 [facility] Comment on above: Performed By: #### L 100.0100, L700.6800, L700.8000, B882-1, L500.4050 #### [facility] [address] [place], [address] Potassium [Moles/Vol] 3.4 mmol/L Low 3.5-5.1 [facility] Comment on above: Performed By: #### L 100.0100, L700.6800, L700.8000, B882-1, L500.4050 #### [facility] [address] [place], [address] Sodium [Moles/Vol] 134 mmol/L Low 136-145 [facility] Comment on above: Performed By: #### L 100.0100, L700.6800, L700.8000, B882-1, L500.4050 #### [facility] [address] [place], [address] T PROT 7.6 g/dL Normal 6.4-8.2 [facility] Comment on above: Performed By: #### L 100.0100, L700.6800, L700.8000, B882-1, L500.4050 #### [facility] [address] [place], [address] Urea nitrogen [Mass/Vol] 5 mg/dL Low 7-18 [facility] Comment on above: Performed By: #### L 100.0100, L700.6800, L700.8000, B882-1, L500.4050 #### [facility] [address] [place], [address] Emergency Department Summary on 03-16-2024 Emergency Department Summary [facility] Medical Records Department [address] [place] [address] Emergency Department Summary 03/16/24 MR#: [id number] Acct: [id number] Name: JERARDO GRISSOM Rep #: [id number] : 2000 23 From: Jose Worthy MD PCP: Care Physician,No Primary Status:[facility] ER Location: ED HPI HPI - Female History of Present Illness Chief Complaint: Narrative Narrative: 23-year-old female at approximately 8 weeks gestation presents from the care center with concern for intrauterine demise/incomplete miscarriage. She relates history that she used to live in [place], and her last menstrual period was January 10, approximately 2 months ago. She did not do a home test, but had gone to the ER and was diagnosed with . On Saturday, 4 days ago, she was seen in an emergency department in [place] because of nausea and vomiting with , and she states that she had an ultrasound performed which showed that she had a intrauterine with heartbeat and a subchorionic hemorrhage/hematoma but had no evidence of vaginal bleeding at that time. They were on the road the following day, and she followed up with the care center here in [place] today, and was told that the subchorionic hematoma had dissolved, but they did not see the baby's heartbeat. She states that she may have occasional vaginal cramping, but no evidence of vaginal bleeding. She was sent to the emergency department for further evaluation. [facility] Medical History no medical history Allergy/AdvReac Type Severity Reaction Status Date / Time No Known Allergies Allergy Verified 03/16/24 12:34 Family History no significant family his Surgical History no surgical history Social History household members: family and children housing: house current occupational status: unemployed Smoking Status: Never smoker ROS ROS ED ROS Narrative Constitutional: No fever, no chills. HEENT: No sore throat. No neck pain. No loss of vision. No rhinorrhea. Cardiovascular: No chest pain. No palpitations. No pedal edema. Respiratory: No cough, no shortness of breath. Abdominal: No abdominal pain. No nausea. No vomiting. Genitourinary: No dysuria. No hematuria. Occasional vaginal/pelvic cramping. No vaginal bleeding. Musculoskeletal: No myalgias. No arthralgias. Neurologic: No headaches. No dizziness. No lightheadedness. Skin: No rash. No change in color. Psychiatric: No depression. No anxiety. EXAM Physical Exam Narrative Exam Narrative: Afebrile. Vital signs noted. HEENT: Normocephalic. Atraumatic. PERRL, EOMI. Neck soft and supple. No point tenderness or step off. Cardiovascular: Regular rate and rhythm. No murmurs, rubs, or gallops appreciated. Respiratory: No tachypnea. Lungs clear to auscultation bilaterally. Gastrointestinal: Abdomen soft, nontender, with normoactive bowel sounds. No rebound or guarding. Neurological: Awake. Alert. Nonfocal, nonlateralizing. Skin: No rash. Normal color. No pallor. Musculoskeletal: No pedal edema. Full range of motion extremities. Const Vital Signs: 03/16/24 12:32 03/16/24 14:31 Temperature 97.6 F L Temperature Source Temporal Pulse Rate 72 78 Respiratory Rate 15 17 Blood Pressure 119/85 H 112/56 L Blood Pressure Mean 96 74 Pulse Ox 98 99 Oxygen Delivery Method Room Air Room Air MDM MDM MDM Narrative Medical decision making narrative: In the differential diagnosis is intrauterine demise versus missed miscarriage. I reviewed her laboratory work and she has normal white count of 6.7 with hemoglobin 11.1, hematocrit 33.7, sodium slightly low at 134 with potassium 3.4, BUN 5 with creatinine 0.67. Glucose appropriately elevated at 82, AST low at 11, normal ALT of 15. hCG quantitative is elevated at 42,037 with serum initially obtained so ultrasound could be obtained which is positive. I reviewed the radiology report which shows an embryo without any cardiac activity consistent with intrauterine demise. There is an intrauterine gestation with gestational age approximated at 9 weeks and 1 day. There is a subchorionic hematoma. Additionally, cervix is closed. At this point in time, as she had not established any RUG TOUCH UP PAINTER care, patient was discussed with Dr. White with OBGYN who is reportedly on for no doc. In discussion with Dr. White, the patient was presented with 2 options, 1 being with a prescription for Cytotec and discharged with follow-up within the next few days for repeat ultrasou nd versus being contacted for D C in the office as an outpatient. Patient has elected not to take Cytotec and will follow-up with the RUG TOUCH UP PAINTER in the office. Return instructions to the emergency department were reviewed. (more content not included)... Normal [facility] ,Serum,hCG Quali.on 03-16-2024 HCG, SERUM QUAL Positive Abnormal 0-9 Nonpreg [facility] Comment on above: Result Comment: PREG ELEAZAR TEST is *POSITIVE* CRITICAL VALUE VERIFIED. CALLED TO AYSE JUDD 03/16/24 1356 Aristeo Georges. RESULTS READ BACK BY SAME . TEST is *POSITIVE* AMENDED REPORT 03/16/24 1424 HCGSQUAL previously reported as: POSITIVE H Negative TEST is *POSITIVE* CRITICAL VALUE VERIFIED. CALLED TO AYSE JUDD 03/16/24 1356 Aristeo Georges. RESULTS READ BACK BY SAME . Performed By: #### L 100.0100, L700.6800, L700.8000, B882-1, L500.4050 #### [facility] [address] [place], [place], [address] Transvaginal w/Preg USon Transvaginal w/Preg US [facility] Imaging Services [address] [place] [address] Transvaginal w/Preg US MR#: [id number] Acct: [id number] Name: JERARDO GRISSOM Rep #: [id number] : 2000 F 23 From: Jona romero MD PCP: Status: PRE ER Study: Transvaginal w/Preg US Date of Exam: 03/16/24 Exam# [id number] Ordering Dr: Jose Worthy MD [id number] STUDY: FIRST TRIMESTER OBSTETRICAL ULTRASOUND REASON FOR EXAM: Female, 23 years old -- NO FHR SEEN AT [facility] LMP: October 17, 2024. TECHNIQUE: Transvaginal TECHNICAL QUALITY: Adequate. PRIOR ULTRASOUND: None. FINDINGS: There is visualization of a single gestational sac in a normal intrauterine position. The mean sac diameter (MSD) measures 4.5 cm, indicating an estimated gestational age (EGA) of 10 weeks, 0 days. The gestational sac shape is within normal limits. There is a visualized yolk sac. The yolk sac measures 3.3 mm. The placenta is non-visualized. There is visualization of an embryo with no cardiac activity, consistent with intrauterine demise. The crown-rump length (CRL) measures 1.84 cm, indicating an estimated gestational age (EGA) of 9 weeks, 2 days. The estimated gestation age (EGA) by LMP is 9 weeks, 2 days. The estimated date of delivery (FARZAD) by LMP is October 17, 2023. The estimated gestation age (EGA) by US is 9 weeks, 1 days. The estimated date of delivery (FARZAD) by US is October 18, 2023. The uterus measures 10.5 cm x 7.4 cm x 4.9 cm. There is no demonstrated uterine fibroid. The cervix is closed. There is evidence of a 1.5 cm x 1.4 cm x 0.8 cm subchorionic hematoma. The right ovary measures 3.1 cm x 2.4 cm x 2.2 cm. There is a 1.6 cm x 1.1 cm x 1 cm follicular cyst. There is no visualized right adnexal mass or complex lesion. The left ovary measures 2.7 cm x 3 cm x 1.2 cm. There is no left ovarian cyst. There is no visualized left adnexal mass or complex lesion. There is no fluid in the cul de sac. US/Transvaginal w/Preg US IMPRESSION: Intrauterine gestation with a mean gestational age of 9 weeks and 1 day. No cardiac activity is noted at this time. Right follicular cyst. Subchorionic hematoma. Electronically Signed: Jona Ward MD at 14:36 EDT Reading Location ID and State: [address] [place] [address] , Service support , CC: Dr. Jose Worthy MD Bid Manager: Signed Normal [facility] hCG Titer Quant., Serumon HCG QUANT. 76542 mIU/mL High 1-3 [facility] Comment on above: Result Comment: hCG levels with Gestational Age Gestational Age hCG mIU/mL (IU/L) 0.2 - 1 week 5 - 50 1-2 weeks 50 - 500 2-3 weeks 100 - 5000 3-4 weeks 500 - 35731 4-5 weeks 1000 - 65728 5-6 weeks 36441 - 100,000 6-8 weeks 63902 - 200,000 2-3 months 82281 - 100,000 Performed By: #### L 500.3400, L501.2450, L100.0100, L500.2500 #### [facility] [address] [place], [address] Vital Signs Date Time Vital Sign Value Performing Clinician Anishi lity 02-24-2025 23:03-0400 Body temperature 98.6 [degF] No Primary Care Physician [facility] 02-24-2025 23:03-0400 Diastolic blood pressure 66 mm[Hg] No Primary Care Physician [facility] 02-24-2025 23:03-0400 Heart rate 96 /min No Primary Care Physician [facility] 02-24-2025 23:03-0400 Respiratory rate 18 /min No Primary Care Physician [facility] 02-24-2025 23:03-0400 SaO2% (BldA) [Mass fraction] 100 % No Primary Care Physician [facility] 02-24-2025 23:03-0400 Systolic blood pressure 126 mm[Hg] No Primary Care Physician [facility] 02-24-2025 18:46-0400 Body height 154.94 cm No Primary Care Physician [facility] 02-24-2025 18:46-0400 Body mass index (BMI) [Ratio] 40.1 kg/m2 No Primary Care Physician [facility] 02-24-2025 18:46-0400 Body weight 96.36 kg No Primary Care Physician [facility] 02-16-2025 14:52-0400 Body height 154.9 cm Armin Pinedo MD Work Phone: [facility] 02-16-2025 14:52-0400 Body mass index (BMI) [Ratio] 41.28 kg/m2 Armin Pinedo MD Work Phone: [facility] 02-16-2025 14:52-0400 Body weight 99.1 kg Armin Pinedo MD Work Phone: [facility] 02-16-2025 14:52-0400 Diastolic blood pressure 76 mm[Hg] Armin Pinedo MD Work Phone: [facility] 02-16-2025 14:52-0400 Systolic blood pressure 110 mm[Hg] Armin Pinedo MD Work Phone: [facility] 02-12-2025 14:09-0400 Body temperature 97 [degF] No Primary Care Physician [facility] 02-12-2025 14:09-0400 Diastolic blood pressure 77 mm[Hg] No Primary Care Physician [facility] 02-12-2025 14:09-0400 Heart rate 81 /min No Primary Care Physician [facility] 02-12-2025 14:09-0400 Respiratory rate 14 /min No Primary Care Physician [facility] 02-12-2025 14:09-0400 SaO2% (BldA) [Mass fraction] 99 % No Primary Care Physician [facility] 02-12-2025 14:09-0400 Systolic blood pressure 117 mm[Hg] No Primary Care Physician [facility] 02-12-2025 12:28-0400 Body height 154.94 cm No Primary Care Physician [facility] 02-12-2025 12:28-0400 Body mass index (BMI) [Ratio] 41.9 kg/m2 No Primary Care Physician [facility] 02-12-2025 12:28-0400 Body weight 100.6 kg No Primary Care Physician [facility] 02-12-2025 11:51-0400 Body temperature 97.3 [degF] Mason Tyler [employer]BRICK TOSSER Work Phone: [facility] 02-12-2025 11:51-0400 Body weight 101 kg Mason Pendmagdalene [employer]CE TEAM LEAD.BRICK TOSSER Work Phone: [facility] 02-12-2025 11:51-0400 Diastolic blood pressure 79 mm[Hg] Mason Pendlebury PRODUCE TEAM LEAD.BRICK TOSSER Work Phone: [facility] 02-12-2025 11:51-0400 Heart rate 100 /min Mason Pendlelynn PRODUCE TEAM LEAD.BRICK TOSSER Work Phone: [facility] 02-12-2025 11:51-0400 Respiratory rate 18 /min Mason Pendlelynn PRODUCE TEAM LEAD.BRICK TOSSER Work Phone: [facility] 02-12-2025 11:51-0400 SaO2% (BldA) [Mass fraction] 100 % Mason Scott PRODUCE TEAM LEAD.BRICK TOSSER Work Phone: [facility] 02-12-2025 11:51-0400 Systolic blood pressure 114 mm[Hg] Mason Pendlelynn PRODUCE TEAM LEAD.BRICK TOSSER Work Phone: [facility] 03-20-2024 15:13-0400 Body weight 92.08 kg Rocio Merchant MD Work Phone: [facility] 03-20-2024 15:13-0400 Diastolic blood pressure 58 mm[Hg] Rocio Merchant MD Work Phone: [facility] 03-20-2024 15:13-0400 Systolic blood pressure 122 mm[Hg] Rocio Merchant MD Work Phone: [facility] Encounters Encounter Date Encounter Type Care Provider Facility Start: 02-24-2025 End: 02-24-2025 Emergency department patient visit No Primary Care Physician -Emergency Department Work Phone: Start: 02-17-2025 End: 02-17-2025 Follow-up encounter Armin Mobley MD Work Phone: [facility] Start: 02-16-2025 End: 02-16-2025 ambulatory ARMIN MOBLEY Facility:[facility] Start: 02-16-2025 End: 02-16-2025 Patient encounter procedure Armin Mobley MD Work Phone: [facility] Comment on above: at early s tage (HCC) (Primary Dx); Nausea and vomiting of , antepartum (HCC) Start: 02-16-2025 End: 02-16-2025 ambulatory ARMIN MOBLEY Facility:[facility] Start: 02-13-2025 End: 02-13-2025 Follow-up encounter Guanako Hernandez APRN.BRICK TOSSER Work Phone: [facility] Start: 02-12-2025 End: 02-12-2025 Emergency department patient visit No Primary Care Physician -Emergency Department Work Phone: Start: 02-12-2025 End: 02-12-2025 [facility]ulatory [facility] Facility:[facility] Start: 02-12-2025 End: 02-12-2025 Office outpatient visit 15 minutes Mason Scott APRN.BRICK TOSSER Work Phone: [facility] Comment on above: Sore throat (Primary Dx); Frequency of urination; Positive test (HCC) Start: 03-26-2024 End: 03-26-2024 ambulatory No Primary Care Physician Facility:[facility] Start: 03-20-2024 End: 03-20-2024 Patient encounter procedure Rocio Merchant MD Work Phone: OB/Gynecology Comment on above: Missed (Melly magaña Dx) Start: 03-20-2024 End: 03-20-2024 ambulatory ROCIO MERCHANT Facility:[facility] Start: 03-19-2024 ambulatory No Primary Car e Physician Facility:[facility] Start: 03-18-2024 Telephone encounter Shivam Davalos MD Work Phone: OB/Gynecology Start: 03-16-2024 End: 03-16-2024 Emergency department patient visit No Primary Care Physician Facility:[facility] Procedures Date Procedure Procedure Detail Performing Clinician Start: 02-24-2025 Estimated creatinine clearance No Primary Care Physician Start: 02-24-2025 Urnls dip stick/tabl et reagent auto microscopy No Primary Care Physician Start: 02-12-2025 UA DIP,URINE HCG (POC) [facility] Provider Start: 02-12-2025 Urnls dip stick/tabl et rgnt auto w/o microscopy Evita Merchant APRN.BRICK TOSSER Work Phone: Start: 02-12-2025 Iadna streptococcus group a amplified probe tq Evita Merchant APRN.CNP Work Phone: Plan of Treatment Date Care Activity Detail Author Start: 01-31-2031 Urine microalbumin profile DTaP,Tdap,Td Vaccine (2 - Td or Tdap) [facility] Start: 02-12-2026 GC (Gonorrhea) Scree kamryn (18-24) GC (Gonorrhea) Screening (18-24) [facility] Start: 02-12-2026 Screening for Chlamy negrita trachomatis Chlamydia Screening (18-24) [facility] Start: 05-10-2025 Influenza vaccination Influenz a Vaccine (Season Ended) [facility] Start: 02-24-2025 [facility] Start: 02-17-2025 End: 02-17-2026 OBSTETRIC ULTRASOUND WHI OBSTETRIC ULTRASOUND WHI Anc Imaging Routine at early stage ([facility]) Expected: 02/17/2025, Expires: 02/17/2026 [facility] Work Phone: Comment on above: Expected: 02/17/2025 , Expires: 02/17/2026 Start: 02-16-2025 End: 02-16-2025 Patient encounter procedure 02/16/2025 3:15 PM EDT Office Visit [facility] [address] [place] [phone] Armin Mobley I, MD [address] [place] [address], [address] [place] [address] NEW PT/Est Care/Annual [facility] Comment on above: NEW PT/Est Care/Bel al Start: 02-12-2025 End: 02-12-2025 [facility] Start: 05-10-2024 Covid-19 Vaccine ( season) Covid-19 Vaccine () [facility] Start: 05-10-2024 Influenza vaccination Influenza Vacc ine (#1) [facility] Start: 03-19-2024 End: 03-19-2024 Patient encounter procedure 03/19/2024 2:50 PM EDT Office Visit OB/Gynecology [address] [place], [place] [id number] Velvet Petersen MD [address] [place], [place] [phone] Pre-op OB/Gynecology Comment on above: Pre-op Start: 09-09-2023 Behavioral Health Screening Behavioral Health Screening [facility] Start: 05-10-2023 Covid-19 Vaccine ( season) Covid-19 Vaccine () [facility] Start: 2023 Screening for malign ant neoplasm of cervix Cervical Cancer Screening [facility] Start: 2021 Hepatitis B Vaccine (1 of 3 - 19+ 3-dose series) Hepatitis B Vaccine (1 of 3 - 19+ 3-dose series) [facility] Start: 2021 Urine microalbumin profile DTaP,Tdap,Td Vaccine (1 - Tdap) [facility] Start: 2020 Anxiety Screening Anxiety Screening [facility] Start: 2020 Depression Screening Depression Scre ening [facility] Start: 2020 GC (Gonorrhea) Screramon harry () GC (Gonorrhea) Screening () [facility] Start: 2020 Hepatitis C screening Hepatitis C Sc reening [facility] Start: 2020 HIV screening HIV Screening [facility] Start: 2020 Screening for Chlamy negrita trachomatis Chlamydia Screening () [facility] Start: 2018 Meningococcal B Vacc ine (1 of 2 - Standard) Meningococcal B Vaccine (1 of 2 - Standard) [facility] Start: 2018 Meningococcal B Vacc ine: Consider Based On Risk (1 of 2 - Patient Seeks Protection) Meningococcal B Vaccine: Consider Based On Risk (1 of 2 - Patient Seeks Protection) [facility] Start: 2017 HPV Vaccine (1 - 3-d ose series) HPV Vaccine (1 - 3-dose series) [facility] Start: 2016 Peds To Adult Transi tion Annual Assessment Peds To Adult Transition Annual Assessment [facility] Start: 2014 Peds To Adult Transi tion Initial Discussion Peds To Adult Transition Initial Discussion [facility] BACTERIAL VAGINOSIS NAAT BACTERI AL VAGINOSIS NAAT Lab Routine Frequency of urination Ordered: 02/12/2025 [facility] Comment on above: Ordered: 02/12/2025 KODAK/TRICHOMONAS NAAT KODAK /TRICHOMONAS NAAT Lab Routine Frequency of urination Ordered: 02/12/2025 [facility] Comment on above: Ordered: 02/12/2025 Chlamydia trachomatis+Neisseria gonorrhoeae DNA [Presence] in Unspecified specimen by FUNMI with probe detection GONORRHEA/CHLAMYDIA NAAT Lab Routine Frequency of urination Ordered: 02/12/2025 [facility] Work Phone: Comment on above: Ordered: 02/12/2025 Patient Education 1st Trimester ED Hyperemesis Gravidarum [facility] Work Phone: Patient referral [facility] Work Phone: Urine test visual color cmprsn meths HCG QUAL UR B/O Lab Routine Frequency of urination Ordered: 02/12/2025 [facility] Work Phone: Comment on above: Ordered: 02/12/2025 Payers Date Payer Category Payer [employer] BLUE CARD PPO OOS [id number] 2024 Unknown [id number] 2024 Medicaid [id number] 2024 Self-pay 2023 Medicaid MEDICAID MCP OOS GENERIC MEDICAID MCP OOS GENERIC [id number] 2023-Present [address] [place] [address] Medicaid [id number] 2023 Medicaid [id number] Unknown [id number] Unknown [id number] Unknown [id number] Unknown [id number] Unknown [id number] Social History Date Type Detail Facility Tobacco smoking stat us NHIS Tobacco smoking consumption unknown [facility] Start: 2002 Sex Assigned At Not on file C [facility] Start: 03-19-2024 End: 02-16-2025 Gender identity Not on file [facility] Start: 03-19-2024 End: 02-16-2025 History of Social function [facility] National Score (1-100), lower number is lower risk 80 [facility] Start: 02-12-2025 End: 02-24-2025 Tobacco smoking status NHIS Never smoked tobacco (finding) [facility] Start: 2002 Sex Assigned At Female W [facility] Start: 02-12-2025 Tobacco use and exposure Smokeless tobacco non-user [facility] Start: 02-16-2025 Alcoholic beverage intake Ex-drinker (finding) [facility] Start: 02-16-2025 [facility] Clinical Notes 03-18-2024 to 02-17-2025 Patient InstructionsArmin Mobley I, MD - 02/17/2025 7:47 PM EDTTelephone Encounter - Bushra Landin MA - 02/13/2025 9:37 AM SAMIRTPMason orozco APRN.BRICK TOSSER - 02/12/2025 11:59 AM EDT Note Date & Type Note Facility 02-17-2025 Instructions Armin Mobley I, MD - 02/17/2025 9:09 PM EDT Please call the office before going to the hospital. If you are , go [facility] the [facility]. Do not go to the outlying ER s ([facility] or [place]). If you need to go to an ER and cannot or will not go downtown, please use one of [facility] s ER s (not [facility], [place] or [facility]). - Begin taking a vitamin once daily; prescription has been sent to your [facility] in [place]. - Take vitamin B6 and Unisom together at bedtime to help reduce nausea; - Use Tylenol for migraine relief as needed instead of Excedrin. - Go to the first-floor lab today for blood work to confirm your and check hormone levels; no paper order is required. - We will call you with your blood test results and schedule an ultrasound once your hormone levels are high enough. - After your ultrasound, you will have an appointment with a nurse practitioner for a complete exam, including a Pap smear, cultures, and any additional blood tests. - If your nausea does not improve with the vitamin B6 and Unisom, please contact our office. documented in this encounter [facility] 02-17-2025 Note HNO ID: [id number] Author: ARMIN MOBLEY MD Service: ? Author Type: Physician Type: Progress Notes Filed: 02/17/2025 21:26 Note Text: S: Jerardo, a 24-year-old is here for evaluation of her , she had a positive test at an urgent care when she went because of sore throat two days ago. Patient stated that her sore throat has improved however now she is complaining of some nausea and vomiting. She had 2 previous vaginal deliveries in 2020 and 2021 and had 2 spontaneous miscarriages. No abdominal pain or vaginal bleeding at this time. She has a history of migraines previously managed with Excedrin but now only using Tylenol. O: On examination, General: Pleasant, in no apparent distress. Pulmonary: Inspiratory effort. Cardiovascular: Regular sinus rhythm, no murmurs. Abdomen: Soft, nontender, no masses Pelvic: Declined examination at this time. Neuro: Alert and oriented x 3. Extremities: No edema. A: Nausea and vomiting of . at early stage. P: To get quantitative hCG and an obstetrical ultrasound once above discriminatory zone and an initial OB visit. To start on vitamins. To start on vitamin B6 and Unisom. I spent a total of 30 minutes on the date of the service which included preparing to see the patient, [id number] patient care, completing clinical documentation, obtaining and/or reviewing separately obtained history, performing a medically appropriate examination, counseling and educating the patient/family/caregiver, and ordering medications, tests, or procedures. Armin Mobley MD [facility] 02-17-2025 History of Presen t illness Narrative S: Jerardo, a 24-year-old is here for evaluation of her , she had a positive test at an urgent care when she went because of sore throat two days ago. Patient stated that her sore throat has improved however now she is complaining of some nausea and vomiting. She had 2 previous vaginal deliveries in 2020 and 2021 and had 2 spontaneous miscarriages. No abdominal pain or vaginal bleeding at this time. She has a history of migraines previously managed with Excedrin but now only using Tylenol. O: On examination, General: Pleasant, in no apparent distress. Pulmonary: Inspiratory effort. Cardiovascular: Regular sinus rhythm, no murmurs. Abdomen: Soft, nontender, no masses Pelvic: Declined examination at this time. Neuro: Alert and oriented x 3. Extremities: No edema. A: Nausea and vomiting of . at early stage. P: To get quantitative hCG and an obstetrical ultrasound once above discriminatory zone and an initial OB visit. To start on vitamins. To start on vitamin B6 and Unisom. I spent a total of 30 minutes on the date of the service which included preparing to see the patient, [id number] patient care, completing clinical documentation, obtaining and/or reviewing separately obtained history, performing a medically appropriate examination, counseling and educating the patient/family/caregiver, and ordering medications, tests, or procedures. Armin Mobley MD documented in this encounter [facility] 02-13-2025 Telephone encounter Note Patient notified of results, verbalized understanding of instructions given. Patient did present to ER yesterday per provider recommendations and has OB f/u scheduled for 02/16/25 which she plans to keep. Bushra Landin MA [facility] 02-13-2025 Miscellaneous Notes Patient notified of results, verbalized understanding of instructions given. Patient did present to ER yesterday per provider recommendations and has OB f/u scheduled for 02/16/25 which she plans to keep. Bushra Landin MA ----- Message from Guanako Hernandez APRN.BRICK TOSSER sent at 02/13/2025 7:56 AM EDT ----- Please inform patient that her testing so far is negative for bacterial vaginosis, gonorrhea, chlamydia, yeast, and trichomonas. documented in this encounter [facility] 02-13-2025 Telephone encounter Note ----- Message from Guanako Hernandez APRN.BRICK TOSSER sent at 02/13/2025 7:56 AM EDT ----- Please inform patient that her testing so far is negative for bacterial vaginosis, gonorrhea, chlamydia, yeast, and trichomonas. [facility] 02-12-2025 Note Addended by: MASON CARTAGENA on: 02/12/2025 01:48 PM Modules accepted: Orders [facility] 02-12-2025 Miscellaneous Notes Addended by: MASON SCOTT on: 02/12/2025 01:48 PM Modules accepted: Orders documented in this encounter [facility] 02-12-2025 Note HNO ID: [id number] Author: MASON SCOTT APRN.CNP Service: ? Author Type: Nurse Practitioner Type: Progress Notes Filed: 02/12/2025 12:35 Note Text: Subjective HPI Nontoxic-appearing 24-year-old female presents urgent care chief complaint sore throat ear pain. Duration of symptoms 1 week. Associated symptoms listed above. OTC medications none. No difficulty swallowing and secretion decreased range of motion neck no fever or trismus. No ear trauma loss of hearing. Additionally has had dysuria frequency with some vaginal discharge. Describes vaginal discharge yellow in color. This has been present for around 2 weeks. Does have some concerns for STDs. Has had BV in the past. Also is late for her menstrual cycle. Last menstrual cycle 429 of this year. Past medical history prescription medications allergies reviewed. No abdominal pain flank pain. Past medical history prescription medications allergies reviewed. .Patient presents with: Sore Throat: Bilat ear pain x 1 week Vaginal Discharge: Yellow colored x 2 weeks Urinary Problem: Frequency of urination x 2 weeks Menstrual Problem: LMP 01/05, 5-6 days of period PAST MEDICAL HISTORY Diagnosis Date History of DANDC 03/26/2024 under ultrasound guidance For Missed AB PAST SURGICAL HISTORY Procedure Laterality Date DANDC SUCTION INCOMP , ANY TRIMESTER 03/26/2024 Suction DANDC under sultrasound guidance for missed AB at [facility] DANDC, DIAG AND/OR THERAPEUTIC 06/2022 ALLERGIES Patient has no known allergies. MEDICATIONS No prescriptions on file. No family history on file. Social History Tobacco Use Smoking status: Never Smokeless tobacco: Never Substance Use Topics Drug use: Yes Types: Marijuana BP 114/79 Pulse 100 Temp 36.3 ?C (97.3 ?F) Resp 18 Wt 101 kg (222 lb 10.6 oz) LMP 01/10/2025 (Approximate) SpO2 100% Review of Systems Constitutional: Negative for chills, fever and malaise/fatigue. HENT: Positive for ear pain and sore throat. Negative for congestion, ear discharge and sinus pain. Eyes: Negative for blurred vision, pain, discharge and redness. Respiratory: Negative for cough, hemoptysis, sputum production, shortness of breath, wheezing and stridor. Cardiovascular: Negative for chest pain. Gastrointestinal: Negative for abdominal pain, diarrhea, nausea and vomiting. Genitourinary: Positive for dysuria, frequency and urgency. Negative for flank pain and hematuria. Musculoskeletal: Negative for myalgias. Skin: Negative for itching and rash. Neurological: Negative for dizziness and headaches. Objective Physical Exam Vitals and nursing note reviewed. Constitutional: General: She is not in acute distress. Appearance: She is not diaphoretic. HENT: Head: Normocephalic. Jaw: No trismus, tenderness, swelling or pain on movement. Right Ear: Hearing, ear canal and external ear normal. No decreased hearing noted. No drainage, swelling or tenderness. Tympanic membrane is not perforated, erythematous or bulging. Left Ear: Hearing, ear canal and external ear normal. No decreased hearing noted. No drainage, swelling or tenderness. Tympanic membrane is not perforated, erythematous or bulging. Ears: Comments: Cerumen impaction bilateral Mouth/Throat: Mouth: Mucous membranes are moist. Pharynx: Oropharynx is clear. Uvula midline. Posterior oropharyngeal erythema present. No pharyngeal swelling, oropharyngeal exudate or uvula swelling. Tonsils: No tonsillar abscesses. Eyes: Conjunctiva/sclera: Conjunctivae normal. Pupils: Pupils are equal, round, and reactive to light. Cardiovascular: Rate and Rhythm: Normal rate and regular rhythm. Pulses: Normal pulses. Heart sounds: Normal heart sounds. Pulmonary: Effort: Pulmonary effort is normal. No tachypnea, accessory muscle usage or respiratory distress. Breath sounds: Normal breath sounds. No stridor. No wheezing, rhonchi or rales. Chest: Chest wall: No tenderness. Abdominal: General: Bowel sounds are normal. There is no distension. Palpations: Abdomen is soft. Abdomen is not rigid. Tenderness: There is abdominal tenderness. There is no right CVA tenderness, left CVA tenderness, guarding or rebound. Negative signs include Park's sign and McBurney's sign. Musculoskeletal: General: No tenderness. Cervical back: Normal range of motion and neck supple. No edema, erythema, rigidity or tenderness. No pain with movement. Normal range of motion. Lymphadenopathy: Head: Right side of head: No submental, submandibular, tonsillar, preauricular, posterior auricular or occipital adenopathy. Left side of head: No submental, submandibular, tonsillar, preauricular, posterior auricular or occipital adenopathy. Cervical: No cervical adenopathy. Right cervical: No superficial or posterior cervical adenopathy. Left cervical: No superficial or posterior cervical adenopathy. Skin: General: Skin is warm and dry. (more content not included)... [facility] 02-12-2025 History of Presen t illness Narrative Subjective HPI Nontoxic-appearing 24-year-old female presents urgent care chief complaint sore throat ear pain. Duration of symptoms 1 week. Associated symptoms listed above. OTC medications none. No difficulty swallowing and secretion decreased range of motion neck no fever or trismus. No ear trauma loss of hearing. Additionally has had dysuria frequency with some vaginal discharge. Describes vaginal discharge yellow in color. This has been present for around 2 weeks. Does have some concerns for STDs. Has had BV in the past. Also is late for her menstrual cycle. Last menstrual cycle 429 of this year. Past medical history prescription medications allergies reviewed. No abdominal pain flank pain. Past medical history prescription medications allergies reviewed. .Patient presents with: Sore Throat: Bilat ear pain x 1 week Vaginal Discharge: Yellow colored x 2 weeks Urinary Problem: Frequency of urination x 2 weeks Menstrual Problem: LMP 01/05, 5-6 days of period PAST MEDICAL HISTORY Diagnosis Date History of D&C 03/26/2024 under ultrasound guidance For Missed AB PAST SURGICAL HISTORY Procedure Laterality Date D&C SUCTION INCOMP , ANY TRIMESTER 03/26/2024 Suction D&C under sultrasound guidance for missed AB at [facility] D&C, DIAG AND/OR THERAPEUTIC 06/2022 ALLERGIES Patient has no known allergies. MEDICATIONS No prescriptions on file. No family history on file. Social History Tobacco Use Smoking status: Never Smokeless tobacco: Never Substance Use Topics Drug use: Yes Types: Marijuana BP 114/79 Pulse 100 Temp 36.3 C (97.3 F) Resp 18 Wt 101 kg (222 lb 10.6 oz) LMP 01/10/2025 (Approximate) SpO2 100% Review of Systems Constitutional: Negative for chills, fever and malaise/fatigue. HENT: Positive for ear pain and sore throat. Negative for congestion, ear discharge and sinus pain. Eyes: Negative for blurred vision, pain, discharge and redness. Respiratory: Negative for cough, hemoptysis, sputum production, shortness of breath, wheezing and stridor. Cardiovascular: Negative for chest pain. Gastrointestinal: Negative for abdominal pain, diarrhea, nausea and vomiting. Genitourinary: Positive for dysuria, frequency and urgency. Negative for flank pain and hematuria. Musculoskeletal: Negative for myalgias. Skin: Negative for itching and rash. Neurological: Negative for dizziness and headaches. Objective Physical Exam Vitals and nursing note reviewed. Constitutional: General: She is not in acute distress. Appearance: She is not diaphoretic. HENT: Head: Normocephalic. Jaw: No trismus, tenderness, swelling or pain on movement. Right Ear: Hearing, ear canal and external ear normal. No decreased hearing noted. No drainage, swelling or tenderness. Tympanic membrane is not perforated, erythematous or bulging. Left Ear: Hearing, ear canal and external ear normal. No decreased hearing noted. No drainage, swelling or tenderness. Tympanic membrane is not perforated, erythematous or bulging. Ears: Comments: Cerumen impaction bilateral Mouth/Throat: Mouth: Mucous membranes are moist. Pharynx: Oropharynx is clear. Uvula midline. Posterior oropharyngeal erythema present. No pharyngeal swelling, oropharyngeal exudate or uvula swelling. Tonsils: No tonsillar abscesses. Eyes: Conjunctiva/sclera: Conjunctivae normal. Pupils: Pupils are equal, round, and reactive to light. Cardiovascular: Rate and Rhythm: Normal rate and regular rhythm. Pulses: Normal pulses. Heart sounds: Normal heart sounds. Pulmonary: Effort: Pulmonary effort is normal. No tachypnea, accessory muscle usage or respiratory distress. Breath sounds: Normal breath sounds. No stridor. No wheezing, rhonchi or rales. Chest: Chest wall: No tenderness. Abdominal: General: Bowel sounds are normal. There is no distension. Palpations: Abdomen is soft. Abdomen is not rigid. Tenderness: There is abdominal tenderness. There is no right CVA tenderness, left CVA tenderness, guarding or rebound. Negative signs include Park's sign and McBurney's sign. Musculoskeletal: General: No tenderness. Cervical back: Normal range of motion and neck supple. No edema, erythema, rigidity or tenderness. No pain with movement. Normal range of motion. Lymphadenopathy: Head: Right side of head: No submental, submandibular, tonsillar, preauricular, posterior auricular or occipital adenopathy. Left side of head: No submental, submandibular, tonsillar, preauricular, posterior auricular or occipital adenopathy. Cervical: No cervical adenopathy. Right cervical: No superficial or posterior cervical adenopathy. Left cervical: No superficial or posterior cervical adenopathy. Skin: General: Skin is warm and dry. Findings: No rash. Neurological: Mental Status: She is alert and oriented to person, place, and time. ASSESSMENT/PLAN: 1. Sore throat - ICD9: 462, ICD10: J02.9 (primary diagnosis) - STREP A MOLECULAR (POC) 2. Frequency of urination - ICD9: 788.41, ICD10: R35.0 - HCG QUAL UR B/O - UA DIP, URINE (POC) 3. Positive test (HCC) - ICD9: V72.42, ICD10: Z32.01 Strep test negative. No evidence of bacterial infection noted on upper respiratory tract on today's assessment. Urine negative. Moderate amount of tenderness to palpation left mid abdominal region. Positive hCG. With tenderness upon palpation abdomen referred to ED. Mason Scott APRN.BRICK TOSSER documented in this encounter [facility] 03-20-2024 Note HNO ID: [id number] Author: ROCIO MERCHANT MD Service: ? Author Type: Physician Type: Progress Notes Filed: 03/24/2024 15:38 Note Text: Mechanical Maintenance offered: Patient declines. Jerardo Grissom is a 23 year old female who presents for problem visit. HPI: Patient presents with miscarriage. She reports 2 ED visits in the past week. One in [place] and the other here in [place] where she learned of the loss. She denies vaginal bleeding or pain. OB History No obstetric history on file. Quirk Sander History LMP: Age at Menarche: Age at First : Age at Menopause: Quirk Sander History Comments: Sexual Activity: No sexual activity data on record; No partner data on record Contraception: No contraception data on record History reviewed. No pertinent past medical history. PAST SURGICAL HISTORY Procedure Laterality Date DANDC, DIAG AND/OR THERAPEUTIC 06/2022 No family history on file. No current outpatient medications on file. No current facility-administered medications for this visit. Allergies As of Date: 03/20/2024 (Not on File) Fully Assessed 03/20/2024 Allergies and current medication updated:Yes EXAM: BP 122/58 Wt 203 lb (92.1kg) GENERAL: pleasant, female in no apparent distress ASSESSMENT AND PLAN: 23yo female with missed ED records from [place] reviewed. Bedside TVUS today shows IUP measuring 8AND3 with no FCA. Discussed R/B/A of treatment options and patient wishes to proceed with suction DANDC at [facility]. Informed consent signed and all questions answered. Medical Decision Making: Problems: Low: Acute, uncomplicated illness or injury Data: Unique source(s) for external note(s) reviewed: 1 Unique test result(s) reviewed: 2 Risk: Moderate: Moderate risk from testing/treatment Medical Decision Making Level: 4 - Moderate Rocio Merchant MD [facility] 03-20-2024 History of Presen t illness Narrative Mechanical Maintenance offered: Patient declines. Jerardo Grissom is a 23 year old female who presents for problem visit. HPI: Patient presents with miscarriage. She reports 2 ED visits in the past week. One in [place] and the other here in [place] where she learned of the loss. She denies vaginal bleeding or pain. OB History No obstetric history on file. Quirk Sander History LMP: Age at Menarche: Age at First : Age at Menopause: Quirk Sander History Comments: Sexual Activity: No sexual activity data on record; No partner data on record Contraception: No contraception data on record History reviewed. No pertinent past medical history. PAST SURGICAL HISTORY Procedure Laterality Date D&C, DIAG AND/OR THERAPEUTIC 06/2022 No family history on file. No current outpatient medications on file. No current facility-administered medications for this visit. Allergies As of Date: 03/20/2024 (Not on File) Fully Assessed 03/20/2024 Allergies and current medication updated:Yes EXAM: BP 122/58 Wt 203 lb (92.1kg) GENERAL: pleasant, female in no apparent distress ASSESSMENT AND PLAN: 23yo female with missed ED records from [place] reviewed. Bedside TVUS today shows IUP measuring 8&3 with no FCA. Discussed R/B/A of treatment options and patient wishes to proceed with suction D&C at [facility]. Informed consent signed and all questions answered. Medical Decision Making: Problems: Low: Acute, uncomplicated illness or injury Data: Unique source(s) for external note(s) reviewed: 1 Unique test result(s) reviewed: 2 Risk: Moderate: Moderate risk from testing/treatment Medical Decision Making Level: 4 - Moderate Rocio Merchant MD documented in this encounter [facility] 03-18-2024 Telephone encounter Note Yes that is good. Thanks. Suction D&C for missed ab. Surgery added on Saturday am. Shivam Davalos MD [facility] Work Phone: 03-18-2024 Miscellaneous Notes Yes that is good. Thanks. Suction D&C for missed ab. Surgery added on Saturday am. Shivam Davalos MD Pt called back in and was rescheduled by PSS to Dr. Petersen tomorrow at 2:50pm. Unable to get ride to come in for appt today. Is that okay? Abbey Rodriguez RN Pt notified and appt scheduled. Abbey Rodriguez RN Left message for patient to call office. Patient needs to schedule pre-operative appointment with Dr. Davalos today. Surgery is schedule at [facility] on 03/20/24. documented in this encounter [facility] 03-18-2024 Telephone encounter Note Pt called back in and was rescheduled by PSS to Dr. Petersen tomorrow at 2:50pm. Unable to get ride to come in for appt today. Is that okay? Abbey Rodriguez RN [facility] 03-18-2024 Telephone encounter Note Pt notified and appt scheduled. Abbey Rodriguez, RN [facility] 03-18-2024 Telephone encounter Note Left message for patient to call office. Patient needs to schedule pre-operative appointment with Dr. Davalos today. Surgery is schedule at [facility] on 03/20/24. [facility] Evaluation note Diagnosis Missed - Primary documented in this encounter [facility]Eval[facility] noteNo assessment information availableWSelect Medical [facility] Work Phone: Evaluation note* Diagnosis Sore throat- Primary Acute pharyngitis Frequency of urination Urinary frequency Positive test (HCC) examination or test, positive result [facility]* Diagnosis at early stage (HCC)- Primary state, incidental [facility]* Diagnosis at early stage (HCC)- Primary state, incidental Nausea and vomiting of , antepartum (HCC) Unspecified vomiting of , antepartum documented in this encounter [facility] Additional Instructions Follow-up with OB regarding your , return for any other concerns. [facility] Work Phone: Hospital Discharge instructions Additional Instructions Please follow-up with your surveillance sensor operator.[facility] Work Phone: Reason for referral (narrative)No reason for referral information availableWSelect Medical [facility] Work Phone: Chief Complaint and Reason for Visit Chief Complaint Admit Date SORE THROAT February 12, 2025 12:28 pm Chief Complaint Admit Date SORE THROAT February 12, 2025 12:28 pm N/V February 24, 2025 6:45 pm Advance Directives No Advanced Directives Records Found Advance Directive Response Recorded Date/ Time Do you have a Healthcare Power of Sander [employer]? No February 12, 2025 2:06pm Advance Directive Response Recorded Date/ Time Do you have a Healthcare Power of [employer]? No February 24, 2025 8:50pm Do you have a Healthcare Power of Sander [employer]? No February 12, 2025 2:06pm Summary Purpose Family History No Family History Records FoundNo Family History Records FoundNo Family History Records Found Additional Source Comments Source Comments (unrecognize d section and content) In the event this informatio n is protected by the Federal Confidentiality of Alcohol and Drug Abuse Patient Records regulations: The Federal rules restrict any use of the information to criminally investigate or prosecute any alcohol or drug abuse patient.[facility] the event this information is protected by the Federal Confidentiality of Alcohol and Drug Abuse Patient Records regulations: The Federal rules restrict any use of the information to criminally investigate or prosecute any alcohol or drug abuse patient.[facility] CenterIn the event this information is protected by the Federal Confidentiality of Alcohol and Drug Abuse Patient Records regulations: The Federal rules restrict any use of the information to criminally investigate or prosecute any alcohol or drug abuse patient.[facility] Center[facility] the event this information is protected by the Federal Confidentiality of Alcohol and Drug Abuse Patient Records regulations: The Federal rules restrict any use of the information to criminally investigate or prosecute any alcohol or drug abuse patient.[facility] CenterIn the event this information is protected by the Federal Confidentiality of Alcohol and Drug Abuse Patient Records regulations: The Federal rules restrict any use of the information to criminally investigate or prosecute any alcohol or drug abuse patient.[facility] CenterIn the event this information is protected by the Federal Confidentiality of Alcohol and Drug Abuse Patient Records regulations: The Federal rules restrict any use of the information to criminally investigate or prosecute any alcohol or drug abuse patient.[facility] Reason for Visit (unrecogniz ed section and content) Reason Comments [facility] Specialty Diagnoses / Procedures Referred By Jem bobo Referred To Contact RUG TOUCH UP PAINTER Diagnoses Missed Procedures [place] MISSED FIRST TRIMESTER SURGICAL dos: 03/20/2024 surgery at [facility] Shivam Davalos MD [address] [place] [address] [employer] [address] [place] [address] Referral ID Status Reason Start Date Expiration Date V isits Requested Visits Authorized [id number] Closed Financial Clearance Required - OON Payor Patient Cleared - Admin/Bar Staff /Director advise to proceed or did not respond 03/18/2024 06/16/2024 1 1 Reason Comments Sore Throat Bilat ear pain x 1 w [place] Vaginal Discharge Yellow colored x 2 w eeks Urinary Problem Frequency of urinati on x 2 weeks Menstrual Problem LMP 01/05, 5-6 days o f period Reason Comments New Patient LMP: 01[place]04/25[place] [facility] AND THEY DID A TEST THAT CAME BACK POSITIVE Care Teams (unrecognized sec tion and content) Team Status: Active Member Role Status Dates No Primary Care Physician Primary Care Provider Active Team Status: Inactive Member Role Status Dates No Primary Care Physician Primary Care Provider Active Start: February 12, 2025 End: February 12, 2025 Dr. John Kovacs MD Emergency Provider Active Sta rt: February 12, 2025 End: February 12, 2025 Team Status: Inactive Member Role Status Dates No Primary Care Physician Primary Care Provider Active Start: February 12, 2025 End: February 12, 2025 Dr. John Kovacs MD Attending Provider Active Sta rt: February 12, 2025 End: February 12, 2025 Dr. John Kovacs MD Emergency Provider Active Sta rt: February 12, 2025 End: February 12, 2025 Team Status: Inactive Member Role Status Dates No Primary Care Physician Primary Care Provider Active Start: February 24, 2025 End: February 24, 2025 Dr. Issa Sherman DO Emergency Provider Active Start: February 24, 2025 End: February 24, 2025 Goals (unrecognized section and content) Goals may be documented in a n alternate sectionGoals may be documented in an alternate section INFORMATION SOURCE (unrecogn ized section and content) DATE CREATED AUTHOR 02/13/2025 [facility] DATE CREATED AUTHOR AUTHOR'S ORGANIZ ATION 02/18/2025 [facility] DATE CREATED AUTHOR AUTHOR'S ORGANIZ ATION 02/28/2025 [facility] FOR RECORDS PERTAINING TO PATIENTS WHO ARE OR HAVE BEEN ENROLLED IN A CHEMICAL DEPENDENCY/SUBSTANCEABUSE PROGRAM, SOME INFORMATION MAY BE OMITTED. This clinical summary was aggregated from multiple sources. Caution should be exercised in using it in the provision of clinical care. This summary normalizes information from multiple sources, and as a consequence, information in this document may materially change the coding, format and clinical context of patient data. In addition, data may be omitted in some cases. CLINICAL DECISIONS SHOULD BE BASED ON THE PRIMARY CLINICAL RECORDS. [facility]. provides no warranty or guarantee of the accuracy or completeness of information in this document.
[2025-02-28 20:12] LABS: Absolute Lymphocyte Count 1.82 X10^3/uL (0.83-4.51); Absolute Neutrophil Count 6.1 X10^3/uL (2.0-7.7); Basophil# 0.01 X10^3/uL; Basophil% 0.1 % (0-1); Eosinophil# 0.02 X10^3/uL; Eosinophils% 0.2 % (0-5); Hematocrit 37.3 % (37-47); Lymphocyte # 1.82 X10^3/ul (0.83-4.51); Lymphocyte % 20.6 % (19-41); Mean Corp Hgb Conc 34.9 g/dL (32-36); Mean Corpuscular Hgb 30.2 pg (27.0-32.0); Mean Corpuscular Volume 86.5 fL (81-99); Mean Platelet Vol. 9.8 fl (6.2-12.0); Monocyte% 10.2 % (0-10); NRBC Flagged by Analyzer 0 % (0-5); Neutrophil # 6.05 X10^3/uL (2.7-7.7); Neutrophil % 68.4 % (47-70); Platelet Count 304 K/mm3 (150-450); RBC Distribution Width CV 12.6 % (11.6-14.6); RBC Distribution Width SD 40.3 fl (35.1-43.9); Red Blood Count 4.31 M/mm3 (4.2-5.4); White Blood Count 8.8 K/mm3 (4.4-11.0)
[2025-02-28 20:15] LABS: Glucose, Dipstick Normal (Normal); Leukocyte Esterase-Dipstick 25 /ul (Negative); Nitrite-Dipstick Negative (Negative); Occult Blood-Urine 50 /ul (Negative); Protein-Dipstick 100 mg/dl (Negative); Urine Urobilinogen 8 mg/dl (Normal); Urine pH 6.5 (5.0 - 8.0)
[2025-02-28 20:17] LABS: Urine Bilirubin Dipstick 1 mg/dL (Negative)
[2025-02-28 20:20] LABS: Color, Urine Yellow (Yellow); Ketone-Dipstick 150 mg/dl (Negative); Urine Clarity Cloudy (Clear)
[2025-02-28 20:29] LABS: Lipase 13 U/L (13-75)
[2025-02-28 20:35] LABS: Bacteria 4+ /hpf (None Seen); Mucous, Urine 2+ /hpf (<or=2+); Red Blood Cells-Urine 0-5 SEEN /hpf (0-5); Squamous Epithelial Cells - UA 0-5 SEEN /hpf (5-10); White Blood Cells 0-5 SEEN /hpf (0-5)
[2025-02-28 20:53] LABS: AST(SGOT) 18 U/L (<=31); Alanine Aminotransfer ALT/SGPT 20 U/L (<=34); Albumin, Serum 4.1 g/dL (3.5-5.0); Alkaline Phosphatase 85 U/L (35-104); Anion Gap 16 (5-15); BUN 4 mg/dL (4-19); BUN/Creat Ratio 5.3 RATIO (10-20); Calcium,Total 9.7 mg/dL (7.6-11.0); Carbon Dioxide 19.5 mmol/L (21.0-32.0); Chloride 97 mmol/L (98-108); Creatinine, Serum 0.66 mg/dL (0.70-1.20); EST Glomerular Filtration Rate 127 (>60); Estimated Creatinine Clearance 140.92 ml/min (50-250); Globulin 4.3 g/dL (2.2-4.2); Glucose 97 mg/dL (70-99); Potassium 3.6 mmol/L (3.3-5.1); Protein, Total 8.4 g/dL (5.9-8.4); Sodium Level 133 mmol/L (133-145)
[2025-02-28] MEDS: Famotidine 200 MG/20 ML MDV 20 MG in 0.9% Normal Saline (Pres. free 8 ML 300 MG IV (22:06)
[2025-02-28 22:09] VITALS: BP 117/77; PULSE 90; RESP 16; O2SAT 100
[2025-02-28 22:48] VITALS: BP 117/77; PULSE 90; RESP 16; TEMP 36.7; O2SAT 100
== END 2025-02-28 22:49 | disposition home or self-care (01) ==
PROVIDERS: Emergency Provider Emergency Medicine; Visit Provider Emergency Medicine
DX: O21.1 Hyperemesis gravidarum with metabolic disturbance (principal); Z87.891 Personal history of nicotine dependence; Z3A.01 Less than 8 weeks gestation of pregnancy
CPT/HCPCS: 80053; 81001; 83690; 85025; 87086; 87088; 96361; 96374; 96375; 99283

== ENCOUNTER 2025-08-17 16:02 | Outpatient (CLI) | payer MEDICAID, SELFPAY ==
[2025-08-17 16:13] VITALS: PULSE 95; O2SAT 98
[2025-08-17 16:14] VITALS: BP 122/75; PULSE 86
[2025-08-17 16:15] VITALS: RESP 13; TEMP 36.8; O2SAT 99
[2025-08-17 16:18] VITALS: PULSE 91; O2SAT 100
[2025-08-17 16:23] VITALS: PULSE 86; O2SAT 100
[2025-08-17 16:28] VITALS: PULSE 84; O2SAT 99
[2025-08-17 16:34] VITALS: BMI 38.9
[2025-08-17 17:03] LABS: Color, Urine Yellow (Yellow); Glucose, Dipstick Normal (Normal); Ketone-Dipstick 50 mg/dl (Negative); Leukocyte Esterase-Dipstick 25 /ul (Negative); Nitrite-Dipstick Negative (Negative); Occult Blood-Urine Negative /ul (Negative); Protein-Dipstick 15 mg/dl (Negative); Specific Gravity, Urine 1.015 (1.002-1.030); Urine Bilirubin Dipstick Negative (Negative)
--- NOTE | 2025-08-18 06:31 | OB.TRI.HP_ITS ---
HPI - General General Date of Admission: 08/17/25 Date of Service: 08/17/25 Chief Complaint: cramping HPI Narrative JERARDO BENITEZ, is a 25 F who presents low abdominal cramping after work. Works at [employer]. Drinks more soda than water. Does have ketones in her urine. Not demetrius . Reassuring heart tones Maternal Data Information Final FARZAD: 10/12/25 Gestational age: 32 PFSH PFSH Medical History Migraine headache Heartburn Former smoker Home Medications ?Medication ?Instructions ?Recorded ?Last Taken ?Type ondansetron 4 mg disintegrating 4 mg PO Q6H PRN PRN Na usea #15 tabs 02/24/25 Unknown Rx tablet vits no.126-ferrous fum 1 tab PO DAILY Unknown History 28 mg iron-folic acid 800 mcg tablet (Classic ) promethazine 25 mg rectal 25 mg RECTAL Q6H PRN PRN Markell sea ##6 02/28/25 Unknown Rx suppository (Promethegan) promethazine 25 mg tablet 25 mg PO Q6H PRN PRN Nausea #10 02/28/25 Unknown Rx TABLETS pyridoxine (vitamin B6) 50 mg 50 mg PO DAILY 02/28/25 Unknown History tablet Allergy/AdvReac Type Severity Reaction Status Date / Time No Known Allergies Allergy Verified 08/17/25 16:29 Surgical History Hx of dilation and curettage Social History household members: family and children housing: house current occupational status: unemployed Smoking Status: Never smoker History 5 Elective abortions Hx Para 2 Spontaneous abortions Hx # Term Pregnancies Ectopic pregnancies Hx # Pregnancies Multiple births # of living children NST FHR Rate Baby A Baseline: 140 Variability:: Moderate Accelerations:: 15 x 15 Decelerations:: None NST Reactive:: Yes Assessment & Plan (1) Cramping affecting , antepartum: (2) 32 weeks gestation of : PLAN: Plan Improved with hydration
== END 2025-08-17 18:30 | disposition home or self-care (01) ==
LOC: WPOUT 16:09 → WP 16:10
PROVIDERS: Referring Provider Obstetrics & Gynecology; Visit Provider Obstetrics & Gynecology
DX: O26.893 Other specified pregnancy related conditions, third trimester (principal); R10.30 Lower abdominal pain, unspecified; Z3A.32 32 weeks gestation of pregnancy
CPT/HCPCS: 59025; 59050; 81002; 99221; G0378